=== PATIENT | male | born 1955 | race Caucasian/White ===

== ENCOUNTER 2020-01-12 08:39 | Inpatient (IN) | payer MEDICARE, SELFPAY ==
[2020-01-12] VITALS (22 sets, daily range): BP systolic 90–147; BP diastolic 69–107; PULSE 72–135; RESP 16–43; TEMP 36.8–37.8; O2SAT 90–100; BMI 20.5
--- NOTE | ~2020-01-12 | XR_ITS ---
EXAMINATION: XR chest 1V portable DATE: 01/12/2020 13:28 INDICATION: Increased shortness of breath. TECHNIQUE: A single frontal view of the chest was obtained on 2 radiographs. COMPARISON: Chest 2 views 01/12/2020, chest CT 01/12/2020 FINDINGS: The chest demonstrates clear lungs without pneumonia, pleural effusion, or pneumothorax. Th e heart size is normal. There is a healing fracture of ninth rib. IMPRESSION: 1. No acute cardiopulmonary disease. Reviewed, dictated and finalized at location A. OPERATOR
--- NOTE | ~2020-01-12 | CT_ITS ---
EXAMINATION: CTA chest PE protocol DATE: 01/12/2020 09:47 INDICATION: Dyspnea. TECHNIQUE: Computed tomography angiography (CTA) of the chest was performed with 100 mL Omnipaque-350 intravenous contrast timed to evaluate the pulmonary arteries. Coronal maximum intensity projection 3D-reconstructions were created by the technologist. Automated exposure control and iterative reconst ruction technique were employed. The dose-length product was 561.66 mGy-cm. COMPARISON: None. FINDINGS: There is a 5 mm nodule in right middle lobe. There are tree-in-bud opacities in lateral seg ment right middle lobe. There is an 7 mm nodule in right lower lobe abutting the major fissure. No pl eural effusion. The heart size is normal. There are coronary artery calcifications. No pericardial ef fusion. There is no pulmonary embolus. There is mild thoracic spondylosis. IMPRESSION: 1. No pulmonary embolus. Sensitivity is mildly decreased by motion artifact. 2. Mild pneumonia in right middle lobe. 3. 7 mm right lower lobe pulmonary nodule, probably benign. Noncontrast low-dose chest CT is recommen ded in 6 months. Reviewed, dictated and finalized at location A. ICAL APPEALS SPECIALIST IMPRESSION: 1. No pulmonary embolus. Sensitivity is mildly decreased by motion artifact. 2. Mild pneumonia in right middle lobe. 3. 7 mm right lower lobe pulmonary nodule, probably benign. Noncontrast low-dos e chest CT is recommended in 6 months.
--- NOTE | ~2020-01-12 | XR_ITS ---
EXAMINATION: XR chest 2V DATE: 01/12/2020 09:53 INDICATION: Dyspnea with bilateral wheezing TECHNIQUE: frontal and lateral views of the chest were obtained. COMPARISON: Chest CT dated 01/12/2020 FINDINGS: Increased lucency with architectural distortion most prominent in the upper lung zones and more promi nently at the right midlung zone suggestive of emphysema. No other airspace opacities, pulmonary rebecca a, pleural effusion or pneumothorax. Cardiomediastinal silhouette is normal. Healing posterolateral l eft ninth rib fracture. Bone island at the anterior left sixth rib. Mild scattered degenerative skel etal changes in the spine and at both shoulders. IMPRESSION: 1. Appearance suggestive but not diagnostic of emphysema. Reviewed, dictated and finalized at location A. HER OF FAMILY AND CONSUMER SCIENCE
--- NOTE | ~2020-01-12 | US_ITS ---
EXAMINATION: US venous doppler LE EXAM DATE: 01/12/2020 17:19 INDICATION: Elevated d-dimer. TECHNIQUE: Multiple grayscale, color flow and Doppler images of the lower extremity deep venous syste ms bilaterally were obtained and reviewed. There is no prior study for comparison. FINDINGS: Right side: The right common femoral, femoral and profunda veins demonstrate normal color flow, respi ratory variation, augmentation and compressibility. Compressibility, color flow confirmed within the right popliteal, posterior tibial, peroneal, and greater saphenous veins. Left side: The left common femoral, femoral and profunda veins demonstrate normal color flow, respira tory variation, augmentation and compressibility. Compressibility, color flow confirmed within the l eft popliteal, posterior tibial, peroneal, and greater saphenous veins. IMPRESSION: 1. No lower extremity deep venous thrombosis bilaterally. Reviewed, dictated and finalized at location A. SHED CLOTH CHECKER
--- NOTE | 2020-01-12 08:46 | ED.SOB ---
HPI - SOB/Dyspnea General Chief Complaint: Shortness of Breath/Dyspnea Stated Complaint: SOB Time Seen by Provider: 01/12/20 08:43 Source: patient Mode of arrival: EMS Limitations: no limitations History of Present Illness HPI Narrative: Pt is a 64 y/o male, with a H/O COPD, who presents to the ED, via EMS, from [facility], with c/o SOB that worsened last night. Pt states that he was intubated x2 while he was at [facility] and he was transferred to [place] for care d/t his son living near here. Pt is not on home O2 and he notes that last night he was hyperventilating and could not fall asleep. He reports feeling fatigued but denies CP. Dr. Cedrick Plata is the Physician at [facility] who is taking care of him. Pt is a former smoker. Per [place] records, pt is on a Prednisone taper currently and was recently Dx with Influenza B. Records show that he was admitted to [facility] on December 12 and he was transferred to [facility] on January 01. elicited complaint: shortness of breath Pertinent past history: COPD Onset (ago): day(s) (last night) Context: other (recently intubated) Timing: progressively worsening Severity: similar to previous episodes Known history of: COPD Associated symptoms: other (fatigue) Treatment prior to arrival: oxygen Related Data Home oxygen amount: none Home Medications Medication Instructions Recorded Confirmed acetaminophen 650 mg PO Q4H PRN 01/12/20 01/12/20 albuterol sulfate 2.5 mg INHALATION Q6H PRN 01/12/20 01/12/20 allopurinol 300 mg PO DAILY 01/12/20 01/12/20 niacin 100 mg PO TIDWM 01/12/20 01/12/20 olanzapine 5 mg PO DAILY 01/12/20 01/12/20 ondansetron 4 mg PO Q4H PRN 01/12/20 01/12/20 prednisone 10 mg PO DAILY 01/12/20 01/12/20 prednisone 20 mg PO DAILY 01/12/20 01/12/20 prednisone 30 mg PO DAILY 01/12/20 01/12/20 quetiapine 50 mg PO HS 01/12/20 01/12/20 ropinirole 1 mg PO TID 01/12/20 thiamine HCl (vitamin B1) [Vitamin 100 mg PO DAILY 01/12/20 01/12/20 B-1] umeclidinium-vilanterol [Anoro 1 inh INHALATION DAILY 01/12/20 01/12/20 Ellipta] Allergies Allergy/AdvReac Type Severity Reaction Status Date / Time No Known Allergies Allergy Verified 01/12/20 08:53 Review of Systems Review of Systems: All systems reviewed & are unremarkable except as noted in HPI and below Constitutional: Constitutional: Reports fatigue Cardiovascular: Cardiovascular: Denies chest pain Respiratory: Respiratory: Reports dyspnea PMFSH Past Medical History Medical History Anxiety COPD (chronic obstructive pulmonary disease) Gout HLD (hyperlipidemia) HTN (hypertension) Kidney stones Multiple sclerosis Required emergent intubation Surgical History Surgical History History of extraction of renal calculus Family History Family History Unknown Family history unknown Social History Social History Social History: The patient is . He is [facility]. He has 3 children the oldest son is a durable power collections attorney for healthcare. The patient is a full code. Patient would not admit to cocaine use but the daughter stated the past the patient used crack cocaine. He used to be on a daily basis about 7 years ago now just uses it occasionally. The patient used to drink heavily but not anymore. Smoking packs per day: 1 Smoking cigarettes per day: 20.0 Years smoked: 30 Smoking pack-years: 30.00 Smoking status: Former smoker Tobacco type: cigarettes Second hand tobacco smoke exposure: Yes Smoking end date: 11/29/14 Alcohol intake: former Substance use: current Substance use type: crack/cocaine Last use: November 2019 Living arrangements: [facility] Occupation/Education: retired Gender
--- NOTE | 2020-01-12 08:50 | ECG_ITS ---
Measurements Intervals [place] Rate: 151 P: 37 [place]: 111 QRS: 48 QRSD: 90 T: 31 QT: 265 QTc: 420 Interpretive Statements ATRIAL FLUTTER/TACHYCARDIA WITH RAPID VENTRICULAR RESPONSE NONSPECIFIC ST & T-WAVE ABNORMALITY- INF/LAT LEADS BASELINE ARTIFACT- I, II, III, AVR, AVL, AVF, V4-V6 ABNORMAL ECG Electronically Signed On 01-12-2020 9:26:32 HEDIS SPECIALIST by Portillo Pearson D.O.
[2020-01-12] MEDS: IPRATROPIUM BR 0.02% INH SOLN 0.5 MG/2.5 ML VIAL 1.5 MG INHALATION (08:57)
[2020-01-12] MEDS: ALBUTEROL SULFATE NEB 2.5 MG/0.5 ML INH 15 MG INHALATION ×2 (08:57→10:35)
[2020-01-12 09:01] LABS: Basophils Percent Auto 0.4 % (0.2-1.2); Eosinophils Absolute Auto 0.1 K/mm3 (0-0.3); Eosinophils Percent Auto 0.9 % (0-4.4); Hematocrit 36.4 % (42.0-52.0); Hemoglobin 11.6 g/dL (14.0-18.0); Immature Granulocyte Absolute 0.04 K/mm3 (0.00-0.031); Immature Granulocyte Percent A 0.4 % (0-0.5); Lymphocytes Absolute Auto 3.26 K/mm3 (0.9-3.2); Lymphocytes Percent Auto 29.2 % (18.3-44.2); Mean Corpuscular HGB Conc 31.9 g/dl (32-36); Mean Corpuscular Volume 97.3 fl (80-100); Mean Platelet Volume 9.8 fl (7.4-10.4); Monocytes Absolute Auto 0.8 K/mm3 (0.1-0.6); Monocytes Percent Auto 6.7 % (2.6-8.5); Neutrophils Percent Auto 62.4 % (45.5-73.1); Platelet Count Result 142 k/mm3 (150-375); Red Blood Count 3.74 M/mm3 (4.6-6.20); Red Cell Distribution Width 12.1 % (11.5-14.5); White Blood Count 11.2 K/mm3 (4.5-10.0)
[2020-01-12 09:06] LABS: Alveolar/Arterial O2 Gradient 39.1 mmHg; Base Excess ABG 3.3 mEq/l (+/-2.0); Carboxyhemoglobin 0.2 % THb (0-2.0); Device ROOM AIR; Fractional Inspired Oxygen 21 %; HCO3 ABG 28.4 mEq/l (22.0-26.0); Methemoglobin ABG 0.2 %THb (0-1.5); Modified Allen's Test Pass; Oxygen Content ABG 15.6 %vol (16.0-22.0); Oxygen Saturation ABG 89.8 % (95.0-100.0); Oxyhemoglobin 88.9 % THb (90.0-100.0); PCO2 ABG 45.1 mmHg (35.0-45.0); PO2 ABG 56.6 mmHg (80.0-100.0); Reduced Hemoglobin 10.7 %THb (0-5.0); Site Drawn RIGHT RADIAL; Total Hemoglobin 12.5 g/dL (12.0-18.0); pH ABG 7.417 (7.350-7.450)
[2020-01-12 09:14] LABS: Alanine Aminotransferase 27 U/L (4-50); Albumin Level 3.5 g/dL (3.5-5.1); Alkaline Phosphatase 99 U/L (38-126); Aspartate Amino Transferase 27 U/L (17-59); Bilirubin,Total 0.4 mg/dL (0.2-1.3); Blood Urea Nitrogen 17 mg/dL (9-20); Calcium 8.7 mg/dL (8.4-10.2); Carbon Dioxide 32 mmol/L (22-30); Chloride 102 mmol/L (98-107); Estimated Glomerular Filt Rate > 60; Glucose 129 mg/dL (75-110); Magnesium 1.8 mg/dL (1.6-2.3); Potassium 3.4 mmol/L (3.4-5.0); Sodium 140 mmol/L (137-145)
[2020-01-12 09:25] LABS: NT Pro B Type Natriuretic Pept 791 PG/ML (5-100); Troponin I 0.018 ng/mL (0.000-0.034)
[2020-01-12 09:26] LABS: INR 0.9; Prothrombin Time 11.8 Seconds (11.1-14.7)
[2020-01-12 09:27] LABS: Partial Thromboplastin Time 25.8 SECONDS (22.3-36.8)
[2020-01-12 09:30] LABS: D Dimer 1.77 ug/mL (<0.48)
[2020-01-12 10:20] LABS: Thyroid Stimulating Hormone Reflex 0.557 uIU/mL (0.465-4.68)
[2020-01-12 12:01] LABS: Add Urine Microscopic? YES; Appearance Urine Clear (Clear); Bacteria Urine Trace /hpf; Bilirubin Urine Negative (Negative); Blood Urine 1+ (Negative); Color Urine Yellow (Yellow); Glucose Urine UA Negative (Negative); Ketones Urine Negative (Negative); Leukocyte Esterase Ur Negative LEU/UL (Negative); Mucus Urine Rare /lpf; Nitrate Urine Negative (Negative); Protein Urine 1+ mg/dL (Negative); Specific Grav Ur 1.023 (1.001-1.035); Squamous Epithelial Cell Urine Rare /hpf (Few); Urobilinogen Urine Negative mg/dL (<2.0)
--- NOTE | 2020-01-12 12:29 | PC.NURSE ---
This patient, Jordy Doyle, was admitted to IMU Room 232-01. Patient/family oriented to hospital policies and general routines including ID bracelet, bed and alarms, visiting hours, pain management, procedures, bathroom and other care routines, personal items, smoking policy, room service/diet, and visiting hours. Valuables list has been completed. Information on how to activate the Rapid Response Team has been discussed. Patient/Family are encouraged to report perceived risks to care and to ask questions if they do not understand what they are told or what they should do.
[2020-01-12 12:34] LABS: Troponin I < 0.012 ng/mL (0.000-0.034)
[2020-01-12] MEDS: ALBUTEROL SULFATE NEB 2.5 MG/0.5 ML INH 5 MG INHALATION ×2 (13:40→22:20)
[2020-01-12] MEDS: IPRATROPIUM BR 0.02% INH SOLN 0.5 MG/2.5 ML VIAL INHALATION ×2 (13:40→22:32)
[2020-01-12] MEDS: methylPREDNISolone SOD SUCC 125 MG VIAL IV PUSH (13:43)
[2020-01-12] MEDS: FUROSEMIDE INJ 40 MG/4 ML VIAL 20 MG IV PUSH (14:16)
--- NOTE | 2020-01-12 15:18 | PM.IMHP ---
H&P: HPI History of Present Illness Chief complaint: Acute respiratory failure/COPD exacerbation/pneumo Narrative: Jordy Doyle is a 64 year old male who was at [facility]. The patient has a history of COPD. The patient was admitted to [facility] I believe was last month. The patient had been intubated 2 times this year so far. He also has MS. He was treated for influenza while he is a [facility]. Awaiting records from [facility] or these for. The daughter tells me that he was intubated overnight the 1st time and then reintubated and on the ventilator 4-5 days after that. Patient had been treated with Tamiflu for the influenza B. the patient had been transferred to [place] for care after his discharge from [facility]. The patient had been on a prednisone taper after the influenza B. here today the patient was found to be tachypneic tachycardic. His EKG was read as atrial fibrillation and the patient was placed on Cardizem. Cardiology has been consulted. The patient stated he has never been in her irregular rhythm in the past. I was called into the room due to patient's respiratory rate of 40. I called Dr. Ricketts the leg breaker into the room to see the patient needed to be intubated and taken to the ICU. We repeated his chest x-ray cardiopulmonary disease. However his lungs are greatly decreased. I did give him a higher dose of Solu-Medrol and then started on the lower dose IV. The patient was also given IV Lasix. The patient stated that he was feeling much better. Patient had been on a Zithromax and, vancomycin, and Rocephin. Form Maker suggested switching from Rocephin to cefepime. Blood gases from ER pH 7.417, CO2 45.1, PO2 56.6, and bicarb 28.4. Date of service is 01/12/2020 the patient is on BiPAP 15/5 with a rate of 4. Review of Systems Review of Systems: Narrative: The patient is quite anxious. He is on a BiPAP machine. He verbalized understanding that if he does not turn around on the BiPAP then we will have no other choice but to intubated. And the patient is okay with this. No chest pain no palpitations no fever no chills. The patient does have MS and states that he feels very fatigued and weak. All systems reviewed & are unremarkable except as noted in HPI and below Constitutional: Constitutional: Reports as per HPI and Reports no additional constitutional complaints Eyes: Eyes: Reports as per HPI and Reports no additional eye complaints ENT: Reports system reviewed and no additional complaints, except as documented and Reports Normal hearing present Cardiovascular: Cardiovascular: Reports no additional cardiovascular complaints Respiratory: Respiratory: Reports no additional respiratory complaints and Reports no additional respiratory complaints Gastrointestinal: Gastrointestinal: Reports as per HPI and Reports no additional gastrointestinal complaints Musculoskeletal: Musculoskeletal: Reports no additional musculoskeletal complaints Integumentary/Breasts: Skin/Breast: Reports system reviewed and no additional complaints, except as docu and Reports as per HPI Neurologic: Reports system reviewed and no additional complaints, except as documented, Reports as per HPI and Reports Normal hearing present Psychiatric: Psychiatric: Reports no additional psychiatric complaints and Reports as per HPI Endocrine: Endocrine: Reports no additional endocrine complaints Hematologic/Lymphatic: Hematologic/Lymphatic: Reports no additional hematologic/lymphatic complaints Allergic/Immunologic: Allergic/Immunologic: Reports no additional allergic/immunologic complaints [facility] Past Medical History Medical History (Updated 01/12/20 @ 16:00 by Teressa Cantu NP) Anxiety COPD (chronic obstructive pulmonary disease) Gout HLD (hyperlipidemia) HTN (hypertension) Kidney stones Multiple sclerosis Required emergent intubation Surgical History Surgical History (Updated 01/12/20 @ 15:57
[2020-01-12 15:32] LABS: Troponin I 0.015 ng/mL (0.000-0.034)
--- NOTE | 2020-01-12 16:29 | PM.CNCAR ---
Assessment and Plan Assessment and plan (1) New onset a-fib: Code(s): I48.91 - Unspecified atrial fibrillation Status: Acute Assessment and Plan: His EKG showed multifocal atrial tachycardia, with rate of 140, improved with Cardizem, currently on IV Cardizem at 5 mg an hour, will switch to oral Cardizem and continue to monitor closely. Will get echocardiogram to evaluate current left ventricular systolic function look for any other structural heart disease. For the time being will be on anticoagulation to see other findings in his echo to consider the need for oral anticoagulation (2) Respiratory failure: Code(s): J96.90 - Respiratory failure, unspecified, unspecified whether with hypoxia or hypercapnia Status: Acute Assessment and Plan: Two slightly better on current study with BiPAP, treatment per primary care service (3) Multiple sclerosis: Code(s): G35 - Multiple sclerosis Status: Chronic (4) HTN (hypertension): Code(s): I10 - Essential (primary) hypertension Status: Chronic (5) COPD (chronic obstructive pulmonary disease): Code(s): J44.9 - Chronic obstructive pulmonary disease, unspecified Status: Chronic Additional Plan Thank you for allowing me to participate in this patient's care, I will be following up with you. Please do not hesitate to call me for any other inquiry History of Present Illness History of Present Illness Consult date/time: 01/12/20 16:29 Chief complaint is shortness of breath. 64 years old gentleman with history of COPD, history of substance abuse, came to hospital because of worsening shortness breath. Apparently had influenza a last month and had pneumonia and was intubated Hospital, but does not know of history of arrhythmia, this time he came in he was noted to have respiratory distress, and had significant wheezing and noted to have significant tachycardia about further review of his EKG it looks showing MAT multifocal atrial tachycardia. He was started on Cardizem drip, and currently he is back in sinus rhythm, he feels better as far as breathing, he stated that he has occasional palpitation but no syncope no dizziness. No history of chest pain no history of known coronary disease. Reason For Visit: Acute respiratory failure/COPD exacerbation/pneumo Review of Systems Review of Systems: ROS unobtainable: unobtainable due to mental condition PMFSH Past Medical History Medical History Anxiety COPD (chronic obstructive pulmonary disease) Gout HLD (hyperlipidemia) HTN (hypertension) Kidney stones Multiple sclerosis Required emergent intubation Surgical History Surgical History History of extraction of renal calculus Family History Family History Unknown Family history unknown Social History Social History Social History: The patient is . He is currently at [facility]. He has 3 children the oldest son is a durable power insurance attorney for healthcare. The patient is a full code. Patient would not admit to cocaine use but the daughter stated the past the patient used crack cocaine. He used to be on a daily basis about 7 years ago now just uses it occasionally. The patient used to drink heavily but not anymore. Smoking packs per day: 1 Smoking cigarettes per day: 20.0 Years smoked: 30 Smoking pack-years: 30.00 Smoking status: Former smoker Tobacco type: cigarettes Second hand tobacco smoke exposure: Yes Smoking end date: 11/29/14 Alcohol intake: former Substance use: current Substance use type: crack/cocaine Last use: November 2019 Living arrangements: half-way Occupation/Education: retired Gender identity (if verbalized by the patient): Male Spiritual care concerns:
[2020-01-12] MEDS: ENOXAPARIN 80 MG/0.8 ML SYRINGE 68 MG SUB-Q (18:50)
[2020-01-12] MEDS: methylPREDNISolone SOD SUCC 125 MG VIAL 80 MG IV PUSH (21:09)
[2020-01-12] MEDS: DILTIAZEM HCL 30 MG TABLET PO (21:10)
[2020-01-12] MEDS: LORAZEPAM INJ 2 MG/ML VIAL 0.5 MG IV PUSH (22:13)
[2020-01-13] VITALS (27 sets, daily range): BP systolic 91–155; BP diastolic 44–92; PULSE 57–118; RESP 18–36; TEMP 35.6–37.1; O2SAT 91–100
--- NOTE | 2020-01-13 | ECHO_ITS ---
Patient Info Name: Jordy Doyle Age: 64 years : 1955 Gender: Male Ht: 72 in Wt: 151 lbs BSA: 1.86 m2 HR: 74 bpm BP: 91 / 44 mmHg Technical Quality: Good Exam Date: 01/13/2020 8:29 AM Exam Location: [facility] Patient Status: Inpatient Admit Date: 01/12/2020 Staff Ordering Physician: Gutierrez Devine MD Coverstitch Elastic Attacher: True Bridges, LIA, RT Attending Provider: Amara Prieto MD Exam Type: CA echo doppler color flow Study Info Complete two-dimensional, color flow and Doppler transthoracic echocardiogram is performed. Summary 1. Left ventricular systolic function is normal, estimated at 55-60%. 2. Left atrial chamber dimension is normal. 3. Right atrial chamber dimension is normal. 4. lipomatous hypertrophy of the atrial septum (normal variant). 5. There is no aortic valve stenosis. 6. There is no mitral valve regurgitation. 7. Unable to assess RVSP due to poor tricuspid regurgitation signal. 8. IVC is dilated and does not collapse with inspiration. Left Ventricle Left ventricular chamber dimension is normal. Left ventricular systolic function is normal, estimated at 55-60%. There is no increased left ventricular wall thickness. Left ventricular septal wall motion is normal. The left ventricular diastolic function is grade I diastolic dysfunction. Right Ventricle Right ventricular chamber dimension is normal. Right ventricular systolic function is normal. Left Atria Left atrial chamber dimension is normal. Right Atria Right atrial chamber dimension is normal. Atrial Septum lipomatous hypertrophy of the atrial septum (normal variant). Aortic Valve The aortic valve is not well visualized but appears trileaflet. There is no aortic valve sclerosis. There is no aortic valve stenosis. There is no aortic valve regurgitation. Pulmonic Valve The pulmonic valve is normal. There is no pulmonic valve stenosis. There is no pulmonic regurgitation. Mitral Valve The mitral valve has normal leaflets. There is no mitral valve stenosis. There is no mitral valve regurgitation. Tricuspid Valve The tricuspid valve leaflets are normal. There is no significant tricuspid valve stenosis. There is no tricuspid valve regurgitation. Unable to assess RVSP due to poor tricuspid regurgitation signal. Pericardium/Pleural The pericardium appears normal. There is no pericardial effusion. Inferior Vena Cava IVC is dilated and does not collapse with inspiration. Aorta The aortic root size at the sinus of Valsalva is normal. The prox ascending aorta size is normal. Left Ventricular Outflow Tract Name Value Normal LVOT 2D LVOT Diameter 2.0 cm LVOT Doppler LVOT Peak Gradient 4 mmHg LVOT Mean Gradient 2 mmHg LVOT VTI 19 cm LVOT VTI/AV VTI Ratio 0.7 LVOT Stroke Volume 59 ml LVOT CO 4.1 l/min LVOT CI 2.2 l/min/m2 Pulmonic Valve
[2020-01-13] MEDS: DILTIAZEM HCL 30 MG TABLET PO ×2 (00:35→05:42)
[2020-01-13] MEDS: ALBUTEROL SULFATE NEB 2.5 MG/0.5 ML INH 5 MG INHALATION ×4 (03:26→21:20)
[2020-01-13] MEDS: IPRATROPIUM BR 0.02% INH SOLN 0.5 MG/2.5 ML VIAL INHALATION ×4 (03:27→21:20)
[2020-01-13] MEDS: LORAZEPAM INJ 2 MG/ML VIAL 0.5 MG IV PUSH ×2 (04:13→17:30)
[2020-01-13 05:17] LABS: Basophils Percent Auto 0.2 % (0.2-1.2); Hematocrit 30.7 % (42.0-52.0); Hemoglobin 9.9 g/dL (14.0-18.0); Immature Granulocyte Absolute 0.05 K/mm3 (0.00-0.031); Immature Granulocyte Percent A 0.8 % (0-0.5); Lymphocytes Absolute Auto 0.53 K/mm3 (0.9-3.2); Lymphocytes Percent Auto 8.3 % (18.3-44.2); Mean Corpuscular HGB Conc 32.2 g/dl (32-36); Mean Corpuscular Volume 96.2 fl (80-100); Mean Platelet Volume 10.3 fl (7.4-10.4); Monocytes Absolute Auto 0.1 K/mm3 (0.1-0.6); Monocytes Percent Auto 0.9 % (2.6-8.5); Neutrophils Absolute Auto 5.8 K/mm3 (1.3-6.7); Neutrophils Percent Auto 89.8 % (45.5-73.1); Platelet Count Result 132 k/mm3 (150-375); Red Blood Count 3.19 M/mm3 (4.6-6.20); Red Cell Distribution Width 12.3 % (11.5-14.5); White Blood Count 6.4 K/mm3 (4.5-10.0)
[2020-01-13] MEDS: methylPREDNISolone SOD SUCC 125 MG VIAL 80 MG IV PUSH ×3 (05:41→21:01)
[2020-01-13] MEDS: ENOXAPARIN 80 MG/0.8 ML SYRINGE 68 MG SUB-Q (05:41)
[2020-01-13 06:06] LABS: Albumin Level 3.1 g/dL (3.5-5.1); Alkaline Phosphatase 92 U/L (38-126); Aspartate Amino Transferase 22 U/L (17-59); Bilirubin,Total 0.3 mg/dL (0.2-1.3); Blood Urea Nitrogen 27 mg/dL (9-20); Calcium 8.4 mg/dL (8.4-10.2); Carbon Dioxide 25 mmol/L (22-30); Chloride 95 mmol/L (98-107); Estimated CRCL calculation 47 ml/min; Estimated Glomerular Filt Rate 47; Glucose 131 mg/dL (75-110); Potassium 4.6 mmol/L (3.4-5.0); Sodium 136 mmol/L (137-145)
[2020-01-13 06:17] LABS: Alanine Aminotransferase 31 U/L (4-50)
[2020-01-13 06:53] LABS: Magnesium 1.8 mg/dL (1.6-2.3)
[2020-01-13 07:12] LABS: Thyroid Stimulating Hormone Reflex 0.203 uIU/mL (0.465-4.68)
[2020-01-13 08:40] LABS: Free T4 Free Thyroxine Reflex 1.31 ng/dL (0.78-2.19)
--- NOTE | 2020-01-13 09:53 | PM.PNCARD ---
Progress Note: A&P Assessment and Plan (1) New onset a-fib: Code(s): I48.91 - Unspecified atrial fibrillation Status: Acute Assessment and Plan: multifocal atrial tachycardia in the setting of resp distress 2D echo with normal EF and no significant valvular disease Heart rate better with diltiazem. Will switch to long acting (2) Respiratory failure: Code(s): J96.90 - Respiratory failure, unspecified, unspecified whether with hypoxia or hypercapnia Status: Acute Assessment and Plan: Two slightly better on current study with BiPAP, treatment per primary care service (3) Multiple sclerosis: Code(s): G35 - Multiple sclerosis Status: Chronic (4) HTN (hypertension): Code(s): I10 - Essential (primary) hypertension Status: Chronic Assessment and Plan: Well controlled (5) COPD (chronic obstructive pulmonary disease): Code(s): J44.9 - Chronic obstructive pulmonary disease, unspecified Status: Chronic Additional Plan Thank you for allowing me to participate in this patient's care, I will be following up with you. Please do not hesitate to call me for any other inquiry Subjective Date/time seen: 01/13/20 09:53 On BiPAP at time of my evaluation. Feels better overall. Tele reviewed, now in sinus rhythm with heart rate ~ 80. Review of Systems Review of Systems: Narrative: Difficult to obtain, pt on BiPAP Exam Narrative: Exam Narrative: Awake alert oriented x3, currently on a BiPAP machine, seems to be having no active distress at this time Neck is supple no obvious JVD, no carotid bruit Chest: Decreased breathing sound on the bases noted with bilateral wheezing noted Cardiovascular: Regular rate and rhythm, 2/6 systolic murmur noted left sternal border Abdomen: Soft nontender bowel sounds positive Extremities: No edema has good pulses distally bilaterally Objective Data Vital Signs Vital Signs: Vital Signs - 24 hr 01/12/20 10:37 01/12/20 11:08 01/12/20 12:20 Temperature Pulse Rate 131 H 129 H 118 H Respiratory Rate 31 H 33 H 16 Blood Pressure 102/69 Pulse Oximetry 99 100 01/12/20 12:30 01/12/20 12:52 01/12/20 13:42 Temperature 36.8 C Pulse Rate 132 H 135 H 111 H Respiratory Rate 38 H 43 H 34 H Blood Pressure 104/79 Pulse Oximetry 100 100 01/12/20 13:59 01/12/20 15:36 01/12/20 16:00 Temperature Pulse Rate 103 H 94 95 Respiratory Rate 35 H 35 H Blood Pressure Pulse Oximetry 100 01/12/20 17:09 01/12/20 18:00 01/12/20 20:00 Temperature Pulse Rate 94 85 79 Respiratory Rate 40 H 27 H Blood Pressure Pulse Oximetry 100 99 01/12/20 20:50 01/12/20 22:00 01/12/20 22:33 Temperature 37.8 C H Pulse Rate 72 79 99 Respiratory Rate 34 H 27 H Blood Pressure 90/72 L Pulse Oximetry 99 01/12/20 22:34 01/12/20 22:43 01/12/20 23:10 Temperature Pulse Rate 94 101 H Respiratory Rate 27 H 26 H Blood Pressure Pulse Oximetry 99 98 01/13/20 00:00 01/13/20 01:36 01/13/20 02:00 Temperature 36.6 C Pulse Rate 68 72 68 Respiratory Rate 31 H 31 H Blood Pressure 111/92 H Pulse Oximetry 98 98 01/13/20 02:20 01/13/20 03:27 01/13/20 04:00 Temperature Pulse Rate 62 66 72 Respiratory Rate 19 19 36 H Blood Pressure Pulse Oximetry 96 100 01/13/20 04:01 01/13/20 06:00 01/13/20 09:20 Temperature 37.1 C 36.8 C Pulse Rate 72 74 91 Respiratory Rate 36 H 30 H Blood Pressure 91/44 L 119/75 Pulse Oximetry 100 91 01/13/20 09:45 01/13/20 09:48 Temperature Pulse Rate 88 Respiratory Rate 20 Blood Pressure Pulse Oximetry 95 Intake/Output Intake/Output: Intake & Output 01/10/20 01/11/20 01/12/20 01/13/20 23:59 23:59 23:59 23:59 Intake Total 450 Balance 450 Meds/Results Medications: Active Medications Generic Name Dose Route Start Last Admin Trade Name Freq PRN Reason Stop Dose Admin Albuterol 5 mg 01/12/20 14:00
--- NOTE | 2020-01-13 10:40 | PM.IMPN ---
Progress Note: A&P Assessment and Plan (1) Respiratory failure: Qualifiers: Chronicity: acute Respiratory failure complication: hypoxia Qualified Code(s): J96.01 - Acute respiratory failure with hypoxia Code(s): J96.90 - Respiratory failure, unspecified, unspecified whether with hypoxia or hypercapnia Status: Acute Assessment and Plan: Improving Wean oxygen as tolerated Continue PRN bipap Treatment as outlined below (2) COPD (chronic obstructive pulmonary disease): Qualifiers: COPD type: COPD with acute lower respiratory infection Qualified Code(s): J44.0 - Chronic obstructive pulmonary disease with (acute) lower respiratory infection Code(s): J44.9 - Chronic obstructive pulmonary disease, unspecified Status: Chronic Assessment and Plan: RML PNA by CTA chest Continue cefepime day 2 Stopped azithromycin and vancomycin 01/12 and utilize doxycycline due to QT prolongation potential PT/OT (3) Multifocal atrial tachycardia: Code(s): I47.1 - Supraventricular tachycardia Status: Acute Assessment and Plan: 01/12 switch to PO diltiazem CD Monitor (4) HTN (hypertension): Qualifiers: Hypertension type: essential hypertension Qualified Code(s): I10 - Essential (primary) hypertension Code(s): I10 - Essential (primary) hypertension Status: Chronic Assessment and Plan: Monitor (5) Multiple sclerosis: Code(s): G35 - Multiple sclerosis Status: Chronic Assessment and Plan: On steroid taper as outpatient Follows with outside neurologist (6) Anxiety: Code(s): F41.9 - Anxiety disorder, unspecified Status: Chronic Assessment and Plan: Continue home medications Subjective Date/time seen: 01/13/20 10:40 Interval history: Breathing a little better. DYE with any exertion. Pain in lower ribs with breathing or coughing. Generalized weakness. At baseline walks with walker for short distances. Denied GI/ issues. Denied abnormal bleeding. Review of Systems Review of Systems: All systems reviewed & are unremarkable except as noted in HPI and below Exam Narrative: Exam Narrative: HEENT: EOMI, PERRL, pharyngeal mucosa pink and intact NECK: No JVD, adenopathy, or thyromegaly CHEST: Tachypneic. Diffuse insp & exp rhonchi with exp wheezes HEART: NL S1/S2, regular, no murmur ABDOMEN: BS+, soft, nontender, no mass, no bruits EXTREMITIES: No cyanosis, edema, or clubbing NEUROLOGIC: CN intact and symmetric to inspection. MUSCULOSKELETAL: Tone and strength symmetric. PSYCH: Alert. Oriented to person, place, and time. Objective Data Vital Signs Vital Signs: Vital Signs - 24 hr 01/12/20 11:08 01/12/20 12:20 01/12/20 12:30 Temperature 98.3 F Pulse Rate 129 H 118 H 132 H Respiratory Rate 33 H 16 38 H Blood Pressure 102/69 104/79 Pulse Oximetry 99 100 100 01/12/20 12:52 01/12/20 13:42 01/12/20 13:59 Temperature Pulse Rate 135 H 111 H 103 H Respiratory Rate 43 H 34 H 35 H Blood Pressure Pulse Oximetry 100 01/12/20 15:36 01/12/20 16:00 01/12/20 17:09 Temperature Pulse Rate 94 95 94 Respiratory Rate 35 H 40 H Blood Pressure Pulse Oximetry 100 100 01/12/20 18:00 01/12/20 20:00 01/12/20 20:50 Temperature 100.0 F H Pulse Rate 85 79 72 Respiratory Rate 27 H 34 H Blood Pressure 90/72 L Pulse Oximetry 99 99 01/12/20 22:00 01/12/20 22:33 01/12/20 22:34 Temperature Pulse Rate 79 99 94 Respiratory Rate 27 H 27 H Blood Pressure Pulse Oximetry 99 01/12/20 22:43 01/12/20 23:10 01/13/20 00:00 Temperature Pulse Rate 101 H 68 Respiratory Rate 26 H 31 H Blood Pressure Pulse Oximetry 98 98 01/13/20 01:36 01/13/20 02:00 01/13/20 02:20 Temperature 97.8 F Pulse Rate 72 68 62 Respiratory Rate 31 H 19 Blood Pressure 111/92 H Pulse Oximetry 98 96 01/13/20 03:27 01/13/20 04:00 01/13/20 04:01 Te
[2020-01-13] MEDS: THIAMINE HCL 100 MG TABLET PO (12:09)
[2020-01-13] MEDS: allopurinoL 300 MG TABLET PO (12:09)
[2020-01-13] MEDS: DOXYCYCLINE HYCLATE 100 MG TABLET PO ×2 (12:09→20:58)
[2020-01-13] MEDS: NIACIN 100 MG TABLET PO ×2 (12:10→17:30)
[2020-01-13] MEDS: ACETAMINOPHEN 325 MG TABLET 650 MG PO ×2 (17:30→20:58)
[2020-01-13] MEDS: QUEtiapine FUMARATE 25 MG TABLET 50 MG PO (20:58)
--- NOTE | 2020-01-13 23:20 | PM.EVENT ---
Event Note Event Note Event Note: I received a call from this patient's nurse at approximately 23:15. Patient is irritable with staff and is refusing to wear his equipment monitor phototypesetting and BiPAP. Nurse concerned that he may be hallucinating. I come to evaluate the patient, and he is sleeping. When I wake him up, he is irritable ?I just want to sleep, leave me alone.? He is alert and oriented, but apparently was talking earlier about having cats in the basement. No tremors, anxiety, diaphoresis, or any signs to suggest alcohol withdrawal, which the nurse was worried about. Patient states he has not had anything to drink in 50 days. He is continuing to refuse telemetry. We discussed the risks of not being monitored, including the development of distal arrhythmia which would not be seen by staff, with the possibility of and the patient states he is okay with that ?and I just want some sleep, do not wake me up again.?
--- NOTE | 2020-01-13 23:28 | PC.NURSE ---
PT. CONSTANTLY PULLING OFF HEART MONITER. INFORMED PT. THAT MD HAS ORDERED THIS TO OBSERVE HIS HR. PT. STARTED TO CUSS AND BECAME VIOLENT STATING HE JUST WANTED TO SLEEP. I NOTIFIED YADIRA DAVILA REGARDING PT. REFUSING TO WEAR TELEMETRY AND BIPAP. MAXIMINO AT BEDSIDE TO ASESS PT. AND EXPLAINED THE NEED FOR TELEMETRY AND BIPAP. PT. STILL REFUSING TO WEAR THEM BOTH.
[2020-01-14] VITALS (14 sets, daily range): BP systolic 136–174; BP diastolic 58–104; PULSE 75–134; RESP 18–44; TEMP 36.4–37.4; O2SAT 94–99
[2020-01-14] MEDS: ALBUTEROL SULFATE NEB 2.5 MG/0.5 ML INH 5 MG INHALATION ×4 (02:55→21:13)
[2020-01-14] MEDS: IPRATROPIUM BR 0.02% INH SOLN 0.5 MG/2.5 ML VIAL INHALATION ×4 (02:55→21:13)
[2020-01-14] MEDS: methylPREDNISolone SOD SUCC 125 MG VIAL 80 MG IV PUSH (04:55)
[2020-01-14] MEDS: LORAZEPAM INJ 2 MG/ML VIAL 0.5 MG IV PUSH ×2 (04:55→20:54)
[2020-01-14 05:31] LABS: Hematocrit 30.9 % (42.0-52.0); Hemoglobin 9.9 g/dL (14.0-18.0); Immature Reticulocyte Fraction 7.7 % (3.0-15.9); Mean Corpuscular Hemoglobin 30.8 pg (26-34); Mean Corpuscular Volume 96.3 fl (80-100); Mean Platelet Volume 10.4 fl (7.4-10.4); Platelet Count Result 157 k/mm3 (150-375); Red Blood Count 3.21 M/mm3 (4.6-6.20); Reticulocyte Hemoglobin Conten 32.1 pg (28.2-35.7); Reticulocyte Percent 1.84 % (0.7-4.3); Reticulocytes Absolute 0.06 B/L (32.2-175.7); White Blood Count 7.2 K/mm3 (4.5-10.0)
[2020-01-14 05:41] LABS: Blood Urea Nitrogen 39 mg/dL (9-20); Calcium 8.4 mg/dL (8.4-10.2); Carbon Dioxide 28 mmol/L (22-30); Chloride 102 mmol/L (98-107); Estimated CRCL calculation 50 ml/min; Estimated Glomerular Filt Rate 51; Glucose 148 mg/dL (75-110); Potassium 3.8 mmol/L (3.4-5.0); Sodium 139 mmol/L (137-145)
[2020-01-14 06:21] LABS: Iron 105 ug/dL (49-181)
[2020-01-14 06:30] LABS: Percent Iron Saturation 60 % (20-50)
[2020-01-14 06:54] LABS: Thyroid Stimulating Hormone Reflex 0.041 uIU/mL (0.465-4.68)
[2020-01-14 07:22] LABS: Folic Acid 4.3 ng/mL (2.76->20)
--- NOTE | 2020-01-14 08:19 | PM.PNCARD ---
Progress Note: A&P Assessment and Plan (1) Multifocal atrial tachycardia: Code(s): I47.1 - Supraventricular tachycardia Status: Acute Assessment and Plan: multifocal atrial tachycardia in the setting of resp distress 2D echo with normal EF and no significant valvular disease Heart rate better with diltiazem. No indication for anticoagulation. (2) AMS (altered mental status): Code(s): R41.82 - Altered mental status, unspecified Status: Acute Assessment and Plan: Hospital delirium vs steroids induced ? management per primary team. (3) Respiratory failure: Qualifiers: Chronicity: acute Respiratory failure complication: hypoxia Qualified Code(s): J96.01 - Acute respiratory failure with hypoxia Code(s): J96.90 - Respiratory failure, unspecified, unspecified whether with hypoxia or hypercapnia Status: Acute Assessment and Plan: Refusing Bipap. (4) Multiple sclerosis: Code(s): G35 - Multiple sclerosis Status: Chronic (5) HTN (hypertension): Qualifiers: Hypertension type: essential hypertension Qualified Code(s): I10 - Essential (primary) hypertension Code(s): I10 - Essential (primary) hypertension Status: Chronic Assessment and Plan: Well controlled (6) COPD (chronic obstructive pulmonary disease): Qualifiers: COPD type: COPD with acute lower respiratory infection Qualified Code(s): J44.0 - Chronic obstructive pulmonary disease with (acute) lower respiratory infection Code(s): J44.9 - Chronic obstructive pulmonary disease, unspecified Status: Chronic Additional Plan Thank you for allowing me to participate in this patient's care, I will be following up with you. Please do not hesitate to call me for any other inquiry Subjective Date/time seen: 01/14/20 08:19 Confused overnight and this morning. Refusing Bipap and tele monitor. Review of Systems Review of Systems: Narrative: Unable to obtain due to AMS Exam Narrative: Exam Narrative: Awake alert oriented x2, seems to be having no active distress at this time Neck is supple no obvious JVD, no carotid bruit Chest: Decreased breathing sound on the bases noted with bilateral wheezing noted Cardiovascular: Regular rate and rhythm, 2/6 systolic murmur noted left sternal border Abdomen: Soft nontender bowel sounds positive Extremities: No edema has good pulses distally bilaterally Objective Data Vital Signs Vital Signs: Vital Signs - 24 hr 01/13/20 09:20 01/13/20 09:45 01/13/20 09:48 Temperature 36.8 C Pulse Rate 91 88 Respiratory Rate 30 H 20 Blood Pressure 119/75 Pulse Oximetry 91 95 01/13/20 09:57 01/13/20 10:00 01/13/20 12:00 Temperature 36.9 C Pulse Rate 89 97 92 Respiratory Rate 18 24 H Blood Pressure 155/77 H Pulse Oximetry 97 01/13/20 14:00 01/13/20 15:41 01/13/20 15:51 Temperature Pulse Rate 101 H 103 H 99 Respiratory Rate 18 18 Blood Pressure Pulse Oximetry 01/13/20 16:00 01/13/20 18:00 01/13/20 18:44 Temperature 35.6 C L Pulse Rate 114 H 118 H 115 H Respiratory Rate 22 H Blood Pressure 155/60 H Pulse Oximetry 97 01/13/20 20:00 01/13/20 20:09 01/13/20 21:25 Temperature 36.4 C Pulse Rate 111 H 108 H 97 Respiratory Rate 24 H 18 Blood Pressure 142/73 H Pulse Oximetry 95 01/13/20 21:32 01/13/20 21:33 01/13/20 23:34 Temperature 36.5 C Pulse Rate 97 97 Respiratory Rate 18 22 H Blood Pressure 123/57 L Pulse Oximetry 95 94 01/14/20 02:55 01/14/20 03:07 01/14/20 03:30 Temperature 36.4 C L Pulse Rate 98 96 108 H Respiratory Rate 18 18 22 H Blood Pressure 163/87 H Pulse Oximetry 96 01/14/20 07:08 Temperature 37.1 C Pulse Rate 97 Respiratory Rate 22 H Blood Pressure 163/79 H Pulse Oximetry 94 Intake/Output Intake/Output: Intake & Output 01/11/20 01/12/20 01/13/20 01/14/20 23:59 23:59 23:59 23:59 Inta
--- NOTE | 2020-01-14 09:16 | P.PNIM_ITS ---
Progress Note: A&P Assessment and Plan (1) Respiratory failure: Qualifiers: Chronicity: acute Respiratory failure complication: hypoxia Qualified Code(s): J96.01 - Acute respiratory failure with hypoxia Code(s): J96.90 - Respiratory failure, unspecified, unspecified whether with hypoxia or hypercapnia Status: Acute Assessment and Plan: * Improving * Wean oxygen as tolerated * Continue PRN bipap * Treatment as outlined below (2) COPD (chronic obstructive pulmonary disease): Qualifiers: COPD type: COPD with acute lower respiratory infection Qualified Code(s ): J44.0 - Chronic obstructive pulmonary disease with (acute) lower respiratory infection Code(s): J44.9 - Chronic obstructive pulmonary disease, unspecified Status: Chronic Assessment and Plan: * RML PNA by CTA chest * Continue cefepime day 2 * Stopped azithromycin and vancomycin 01/12 and utilize doxycycline due to QT prolongation potential * PT/OT (3) Multifocal atrial tachycardia: Code(s): I47.1 - Supraventricular tachycardia Status: Acute Assessment and Plan: * 01/12 switch to PO diltiazem CD * Monitor (4) HTN (hypertension): Qualifiers: Hypertension type: essential hypertension Qualified Code(s): I10 - Essential (primary) hypertension Code(s): I10 - Essential (primary) hypertension Status: Chronic Assessment and Plan: * Monitor (5) Multiple sclerosis: Code(s): G35 - Multiple sclerosis Status: Chronic Assessment and Plan: * On steroid taper as outpatient * Follows with outside neurologist (6) Anxiety: Code(s): F41.9 - Anxiety disorder, unspecified Status: Chronic Assessment and Plan: * D/w son prior dx of bipolar from [facility] * He seems delusional and confabulating but is oriented to year and month, thought he was in [facility] * Increase Zyprexa and Seroquel Subjective Date/time seen: 01/14/20 09:16 Interval history: Agitated last night. Confabulating this AM. Review of Systems Review of Systems: ROS unobtainable: unobtainable due to mental status Exam Narrative: Exam Narrative: HEENT: EOMI, PERRL, pharyngeal mucosa pink and intact NECK: No JVD, adenopathy, or thyromegaly CHEST: Decreased BS HEART: NL S1/S2, regular, no murmur ABDOMEN: BS+, soft, nontender, no mass, no bruits EXTREMITIES: No cyanosis, edema, or clubbing NEUROLOGIC: CN intact and symmetric to inspection. MUSCULOSKELETAL: Tone and strength symmetric. PSYCH: Alert. Oriented to person, place, and time. Objective Data Vital Signs Vital Signs: Vital Signs - 24 hr 01/13/20 09:20 01/13/20 09:45 01/13/20 09:48 Temperature 98.2 F Pulse Rate 91 88 Respiratory Rate 30 H 20 Blood Pressure 119/75 Pulse Oximetry 91 95 01/13/20 09:57 01/13/20 10:00 01/13/20 12:00 Temperature 98.4 F Pulse Rate 89 97 92 Respiratory Rate 18 24 H Blood Pressure 155/77 H Pulse Oximetry 97 01/13/20 14:00 01/13/20 15:41 01/13/20 15:51 Temperature Pulse Rate 101 H 103 H 99 Respiratory Rate 18 18 Blood Pressure Pulse Oximetry 01/13/20 16:00 01/13/20 18:00 01/13/20 18:44 Temperature 96.0 F L Pul
--- NOTE | 2020-01-14 09:16 | PM.IMPN ---
Progress Note: A&P Assessment and Plan (1) Respiratory failure: Qualifiers: Chronicity: acute Respiratory failure complication: hypoxia Qualified Code(s): J96.01 - Acute respiratory failure with hypoxia Code(s): J96.90 - Respiratory failure, unspecified, unspecified whether with hypoxia or hypercapnia Status: Acute Assessment and Plan: Improving Wean oxygen as tolerated Continue PRN bipap Treatment as outlined below (2) COPD (chronic obstructive pulmonary disease): Qualifiers: COPD type: COPD with acute lower respiratory infection Qualified Code(s): J44.0 - Chronic obstructive pulmonary disease with (acute) lower respiratory infection Code(s): J44.9 - Chronic obstructive pulmonary disease, unspecified Status: Chronic Assessment and Plan: RML PNA by CTA chest Continue cefepime day 2 Stopped azithromycin and vancomycin 01/12 and utilize doxycycline due to QT prolongation potential PT/OT (3) Multifocal atrial tachycardia: Code(s): I47.1 - Supraventricular tachycardia Status: Acute Assessment and Plan: 01/12 switch to PO diltiazem CD Monitor (4) HTN (hypertension): Qualifiers: Hypertension type: essential hypertension Qualified Code(s): I10 - Essential (primary) hypertension Code(s): I10 - Essential (primary) hypertension Status: Chronic Assessment and Plan: Monitor (5) Multiple sclerosis: Code(s): G35 - Multiple sclerosis Status: Chronic Assessment and Plan: On steroid taper as outpatient Follows with outside neurologist (6) Anxiety: Code(s): F41.9 - Anxiety disorder, unspecified Status: Chronic Assessment and Plan: D/w son prior dx of bipolar from [facility] He seems delusional and confabulating but is oriented to year and month, thought he was in [facility] Increase Zyprexa and Seroquel Subjective Date/time seen: 01/14/20 09:16 Interval history: Agitated last night. Confabulating this AM. Review of Systems Review of Systems: ROS unobtainable: unobtainable due to mental status Exam Narrative: Exam Narrative: HEENT: EOMI, PERRL, pharyngeal mucosa pink and intact NECK: No JVD, adenopathy, or thyromegaly CHEST: Decreased BS HEART: NL S1/S2, regular, no murmur ABDOMEN: BS+, soft, nontender, no mass, no bruits EXTREMITIES: No cyanosis, edema, or clubbing NEUROLOGIC: CN intact and symmetric to inspection. MUSCULOSKELETAL: Tone and strength symmetric. PSYCH: Alert. Oriented to person, place, and time. Objective Data Vital Signs Vital Signs: Vital Signs - 24 hr 01/13/20 09:20 01/13/20 09:45 01/13/20 09:48 Temperature 98.2 F Pulse Rate 91 88 Respiratory Rate 30 H 20 Blood Pressure 119/75 Pulse Oximetry 91 95 01/13/20 09:57 01/13/20 10:00 01/13/20 12:00 Temperature 98.4 F Pulse Rate 89 97 92 Respiratory Rate 18 24 H Blood Pressure 155/77 H Pulse Oximetry 97 01/13/20 14:00 01/13/20 15:41 01/13/20 15:51 Temperature Pulse Rate 101 H 103 H 99 Respiratory Rate 18 18 Blood Pressure Pulse Oximetry 01/13/20 16:00 01/13/20 18:00 01/13/20 18:44 Temperature 96.0 F L Pulse Rate 114 H 118 H 115 H Respiratory Rate 22 H Blood Pressure 155/60 H Pulse Oximetry 97 01/13/20 20:00 01/13/20 20:09 01/13/20 21:25 Temperature 97.6 F Pulse Rate 111 H 108 H 97 Respiratory Rate 24 H 18 Blood Pressure 142/73 H Pulse Oximetry 95 01/13/20 21:32 01/13/20 21:33 01/13/20 23:34 Temperature 97.7 F Pulse Rate 97 97 Respiratory Rate 18 22 H Blood Pressure 123/57 L Pulse Oximetry 95 94 01/14/20 02:55 01/14/20 03:07 01/14/20 03:30 Temperature 97.5 F L Pulse Rate 98 96 108 H Respiratory Rate 18 18 22 H Blood Pressure 163/87 H Pulse Oximetry 96 01/14/20 07:08 Temperature 98.7 F Pulse Rate 97 Respiratory Rate 22 H Blood Pressure 163/79 H Pulse Oximetry 94
--- NOTE | 2020-01-14 09:36 | WPDCDIQUERY2 ---
CDI Query Clarification Request -COPD with acute lower respiratory tract infection has been documented - RML PNA by CTA chest has been documented -Coders cannot code from CTA chest findings If you agree with CTA findings of RML PNA, please document as a diagnosis.
[2020-01-14] MEDS: allopurinoL 300 MG TABLET PO (10:14)
[2020-01-14] MEDS: NIACIN 100 MG TABLET PO ×3 (10:14→17:24)
[2020-01-14] MEDS: THIAMINE HCL 100 MG TABLET PO (10:15)
[2020-01-14] MEDS: predniSONE 20 MG TABLET 40 MG PO (10:15)
[2020-01-14] MEDS: ACETAMINOPHEN 325 MG TABLET 650 MG PO ×2 (10:15→21:15)
[2020-01-14] MEDS: DOXYCYCLINE HYCLATE 100 MG TABLET PO ×2 (10:15→20:51)
[2020-01-14] MEDS: ENOXAPARIN 30 MG/0.3 ML SYRINGE SUB-Q (10:15)
[2020-01-14 18:53] LABS: Free T4 Free Thyroxine Reflex 1.57 ng/dL (0.78-2.19)
[2020-01-14] MEDS: QUEtiapine FUMARATE 100 MG TABLET PO (20:51)
[2020-01-15] VITALS (17 sets, daily range): BP systolic 133–169; BP diastolic 70–108; PULSE 72–136; RESP 16–38; TEMP 36.4–36.9; O2SAT 94–100
[2020-01-15] MEDS: OLANZapine 10 MG INJ VIAL 5 MG IM (00:31)
[2020-01-15] MEDS: IPRATROPIUM BR 0.02% INH SOLN 0.5 MG/2.5 ML VIAL INHALATION ×4 (02:09→20:17)
[2020-01-15] MEDS: ALBUTEROL SULFATE NEB 2.5 MG/0.5 ML INH 5 MG INHALATION ×4 (02:09→20:17)
[2020-01-15] MEDS: LORAZEPAM INJ 2 MG/ML VIAL 0.5 MG IV PUSH ×2 (04:40→17:44)
[2020-01-15 04:48] LABS: Hematocrit 32.9 % (42.0-52.0); Hemoglobin 10.4 g/dL (14.0-18.0); Mean Corpuscular HGB Conc 31.6 g/dl (32-36); Mean Corpuscular Hemoglobin 30.7 pg (26-34); Mean Corpuscular Volume 97.1 fl (80-100); Mean Platelet Volume 10.1 fl (7.4-10.4); Platelet Count Result 185 k/mm3 (150-375); Red Blood Count 3.39 M/mm3 (4.6-6.20); Red Cell Distribution Width 12.2 % (11.5-14.5); White Blood Count 9.4 K/mm3 (4.5-10.0)
[2020-01-15 04:54] LABS: Blood Urea Nitrogen 38 mg/dL (9-20); Carbon Dioxide 32 mmol/L (22-30); Chloride 102 mmol/L (98-107); Estimated CRCL calculation 61 ml/min; Estimated Glomerular Filt Rate > 60; Glucose 118 mg/dL (75-110); Potassium 3.8 mmol/L (3.4-5.0); Sodium 142 mmol/L (137-145)
--- NOTE | 2020-01-15 09:18 | PM.PNCARD ---
Progress Note: A&P Assessment and Plan (1) Multifocal atrial tachycardia: Code(s): I47.1 - Supraventricular tachycardia Status: Acute Assessment and Plan: multifocal atrial tachycardia in the setting of resp distress 2D echo with normal EF and no significant valvular disease Heart rate better with diltiazem. No indication for anticoagulation. (2) AMS (altered mental status): Code(s): R41.82 - Altered mental status, unspecified Status: Acute Assessment and Plan: Hospital delirium vs steroids induced ? management per primary team. (3) Respiratory failure: Qualifiers: Chronicity: acute Respiratory failure complication: hypoxia Qualified Code(s): J96.01 - Acute respiratory failure with hypoxia Code(s): J96.90 - Respiratory failure, unspecified, unspecified whether with hypoxia or hypercapnia Status: Acute Assessment and Plan: Refusing Bipap. (4) Multiple sclerosis: Code(s): G35 - Multiple sclerosis Status: Chronic (5) HTN (hypertension): Qualifiers: Hypertension type: essential hypertension Qualified Code(s): I10 - Essential (primary) hypertension Code(s): I10 - Essential (primary) hypertension Status: Chronic Assessment and Plan: Well controlled (6) COPD (chronic obstructive pulmonary disease): Qualifiers: COPD type: COPD with acute lower respiratory infection Qualified Code(s): J44.0 - Chronic obstructive pulmonary disease with (acute) lower respiratory infection Code(s): J44.9 - Chronic obstructive pulmonary disease, unspecified Status: Chronic Additional Plan Will sign off at this time, please call for any cardiac concerns Subjective Date/time seen: 01/15/20 09:18 Interval history: Agitated last night. Confabulating this AM. Exam Narrative: Exam Narrative: Awake, but confused, seems to be having no active distress at this time Neck is supple no obvious JVD, no carotid bruit Chest: Decreased breathing sound on the bases noted with bilateral wheezing noted Cardiovascular: Regular rate and rhythm, 2/6 systolic murmur noted left sternal border Abdomen: Soft nontender bowel sounds positive Extremities: No edema has good pulses distally bilaterally Objective Data Vital Signs Vital Signs: Vital Signs - 24 hr 01/14/20 10:19 01/14/20 10:31 01/14/20 14:00 Temperature Pulse Rate 108 H 113 H Respiratory Rate 26 H 38 H 44 H Blood Pressure Pulse Oximetry 01/14/20 14:10 01/14/20 16:00 01/14/20 20:00 Temperature 36.7 C 37.4 C Pulse Rate 115 H 75 115 H Respiratory Rate 40 H 24 H 24 H Blood Pressure 136/58 L 174/104 H Pulse Oximetry 99 94 01/14/20 21:14 01/14/20 21:16 01/14/20 21:19 Temperature Pulse Rate 115 H 118 H Respiratory Rate 36 H 36 H Blood Pressure Pulse Oximetry 94 01/15/20 00:00 01/15/20 02:09 01/15/20 02:18 Temperature 36.9 C Pulse Rate 136 H 115 H 120 H Respiratory Rate 16 36 H 38 H Blood Pressure 147/70 H Pulse Oximetry 100 01/15/20 04:30 01/15/20 07:47 01/15/20 07:58 Temperature Pulse Rate 134 H 119 H 122 H Respiratory Rate 26 H 34 H 38 H Blood Pressure Pulse Oximetry 95 01/15/20 08:00 Temperature 36.6 C Pulse Rate 80 Respiratory Rate 26 H Blood Pressure 160/107 H Pulse Oximetry 95 Intake/Output Intake/Output: Intake & Output 01/12/20 01/13/20 01/14/20 01/15/20 23:59 23:59 23:59 23:59 Intake Total 450 820 590 100 Output Total 350 Balance 450 470 590 100 Meds/Results Medications: Active Medications Generic Name Dose Route Start Last Admin Trade Name Freq PRN Reason Stop Dose Admin Acetaminophen 650 mg 01/13/20 11:04 01/14/20 21:15 Tylenol Tablet PO 650 mg Q4H PRN Administration Headache or mild pain Albuterol 5 mg 01/12/20 14:00 01/15/20 07:47 Albuterol Sulf Neb 2.5mg/0.5ml INHALATION 5 mg Q6HRT NOEMI Administration Albuterol 2.
--- NOTE | 2020-01-15 09:37 | P.PNIM_ITS ---
Progress Note: A&P Assessment and Plan (1) Respiratory failure: Qualifiers: Chronicity: acute Respiratory failure complication: hypoxia Qualified Code(s): J96.01 - Acute respiratory failure with hypoxia Code(s): J96.90 - Respiratory failure, unspecified, unspecified whether with hypoxia or hypercapnia Status: Acute Assessment and Plan: * Improving * Wean oxygen as tolerated * Continue PRN bipap * Treatment as outlined below (2) COPD (chronic obstructive pulmonary disease): Qualifiers: COPD type: COPD with acute lower respiratory infection Qualified Code(s ): J44.0 - Chronic obstructive pulmonary disease with (acute) lower respiratory infection Code(s): J44.9 - Chronic obstructive pulmonary disease, unspecified Status: Chronic Assessment and Plan: * RML PNA by CTA chest * Continue cefepime day 2 * Stopped azithromycin and vancomycin 01/12 and utilize doxycycline due to QT prolongation potential * PT/OT (3) Multifocal atrial tachycardia: Code(s): I47.1 - Supraventricular tachycardia Status: Acute Assessment and Plan: * 01/12 switched to PO diltiazem CD (4) HTN (hypertension): Qualifiers: Hypertension type: essential hypertension Qualified Code(s): I10 - Essential (primary) hypertension Code(s): I10 - Essential (primary) hypertension Status: Chronic Assessment and Plan: * Monitor (5) Multiple sclerosis: Code(s): G35 - Multiple sclerosis Status: Chronic Assessment and Plan: * On steroid taper as outpatient * Follows with outside neurologist (6) Anxiety: Code(s): F41.9 - Anxiety disorder, unspecified Status: Chronic Assessment and Plan: * 3/6 D/w son prior dx of bipolar from [facility] * 3/ He seemed delusional and confabulating but is oriented to year and month, thought he was in [facility] * Acute illness, steroids, hopitalization, underlying psychiatric issues all likely contributing * Increase HS quetiapine to 200mg Subjective Date/time seen: 01/15/20 09:37 Interval history: Agitated again last PM. Required Zyprexa 5mg IM. Sleeping, but intermittently agitated. Review of Systems Review of Systems: ROS unobtainable: unobtainable due to mental status Exam Narrative: Exam Narrative: HEENT: EOMI, PERRL, pharyngeal mucosa pink and intact NECK: No JVD, adenopathy, or thyromegaly CHEST: Decreased BS HEART: NL S1/S2, regular, no murmur ABDOMEN: BS+, soft, nontender, no mass, no bruits EXTREMITIES: No cyanosis, edema, or clubbing NEUROLOGIC: CN intact and symmetric to inspection. MUSCULOSKELETAL: Tone and strength symmetric. PSYCH: Alert. Oriented to person, place, and time. Objective Data Vital Signs Vital Signs: Vital Signs - 24 hr 01/14/20 10:19 01/14/20 10:31 01/14/20 14:00 Temperature Pulse Rate 108 H 113 H Respiratory Rate 26 H 38 H 44 H Blood Pressure Pulse Oximetry 01/14/20 14:10 01/14/20 16:00 01/14/20 20:00 Temperature 98.1 F 99.3 F Pulse Rate 115 H 75 115 H Respiratory Rate 40 H 24 H 24 H Blood Pressure 136/58 L 174/104 H Pulse Oximetry 99 94 01/14/20 21:14 01/14/20 21:16 01/14/20 21:19 Temperature Pulse Rate 115 H 118 H Respiratory Rate 36 H 36 H Blo
--- NOTE | 2020-01-15 09:37 | PM.IMPN ---
Progress Note: A&P Assessment and Plan (1) Respiratory failure: Qualifiers: Chronicity: acute Respiratory failure complication: hypoxia Qualified Code(s): J96.01 - Acute respiratory failure with hypoxia Code(s): J96.90 - Respiratory failure, unspecified, unspecified whether with hypoxia or hypercapnia Status: Acute Assessment and Plan: Improving Wean oxygen as tolerated Continue PRN bipap Treatment as outlined below (2) COPD (chronic obstructive pulmonary disease): Qualifiers: COPD type: COPD with acute lower respiratory infection Qualified Code(s): J44.0 - Chronic obstructive pulmonary disease with (acute) lower respiratory infection Code(s): J44.9 - Chronic obstructive pulmonary disease, unspecified Status: Chronic Assessment and Plan: RML PNA by CTA chest Continue cefepime day 2 Stopped azithromycin and vancomycin 01/12 and utilize doxycycline due to QT prolongation potential PT/OT (3) Multifocal atrial tachycardia: Code(s): I47.1 - Supraventricular tachycardia Status: Acute Assessment and Plan: 01/12 switched to PO diltiazem CD (4) HTN (hypertension): Qualifiers: Hypertension type: essential hypertension Qualified Code(s): I10 - Essential (primary) hypertension Code(s): I10 - Essential (primary) hypertension Status: Chronic Assessment and Plan: Monitor (5) Multiple sclerosis: Code(s): G35 - Multiple sclerosis Status: Chronic Assessment and Plan: On steroid taper as outpatient Follows with outside neurologist (6) Anxiety: Code(s): F41.9 - Anxiety disorder, unspecified Status: Chronic Assessment and Plan: 01/13 D/w son prior dx of bipolar from [facility] 01/13 He seemed delusional and confabulating but is oriented to year and month, thought he was in [facility] Acute illness, steroids, hopitalization, underlying psychiatric issues all likely contributing Increase HS quetiapine to 200mg Subjective Date/time seen: 01/15/20 09:37 Interval history: Agitated again last PM. Required Zyprexa 5mg IM. Sleeping, but intermittently agitated. Review of Systems Review of Systems: ROS unobtainable: unobtainable due to mental status Exam Narrative: Exam Narrative: HEENT: EOMI, PERRL, pharyngeal mucosa pink and intact NECK: No JVD, adenopathy, or thyromegaly CHEST: Decreased BS HEART: NL S1/S2, regular, no murmur ABDOMEN: BS+, soft, nontender, no mass, no bruits EXTREMITIES: No cyanosis, edema, or clubbing NEUROLOGIC: CN intact and symmetric to inspection. MUSCULOSKELETAL: Tone and strength symmetric. PSYCH: Alert. Oriented to person, place, and time. Objective Data Vital Signs Vital Signs: Vital Signs - 24 hr 01/14/20 10:19 01/14/20 10:31 01/14/20 14:00 Temperature Pulse Rate 108 H 113 H Respiratory Rate 26 H 38 H 44 H Blood Pressure Pulse Oximetry 01/14/20 14:10 01/14/20 16:00 01/14/20 20:00 Temperature 98.1 F 99.3 F Pulse Rate 115 H 75 115 H Respiratory Rate 40 H 24 H 24 H Blood Pressure 136/58 L 174/104 H Pulse Oximetry 99 94 01/14/20 21:14 01/14/20 21:16 01/14/20 21:19 Temperature Pulse Rate 115 H 118 H Respiratory Rate 36 H 36 H Blood Pressure Pulse Oximetry 94 01/15/20 00:00 01/15/20 02:09 01/15/20 02:18 Temperature 98.4 F Pulse Rate 136 H 115 H 120 H Respiratory Rate 16 36 H 38 H Blood Pressure 147/70 H Pulse Oximetry 100 01/15/20 04:30 01/15/20 07:47 01/15/20 07:58 Temperature Pulse Rate 134 H 119 H 122 H Respiratory Rate 26 H 34 H 38 H Blood Pressure Pulse Oximetry 95 01/15/20 08:00 Temperature 97.9 F Pulse Rate 80 Respiratory Rate 26 H Blood Pressure 160/107 H Pulse Oximetry 95 Intake/Output Intake/Output: Intake & Output 01/12/20 01/13/20 01/14/20 01/15/20 23:59 23:59 23:59 23:59 Intake Total 450 820 590 100 Output Total 350 Ba
[2020-01-15 10:52] LABS: Alveolar/Arterial O2 Gradient 72.1 mmHg; Base Excess ABG 5.5 mEq/l (+/-2.0); Fractional Inspired Oxygen 35 %; HCO3 ABG 29.7 mEq/l (22.0-26.0); Oxygen Content ABG 16.5 %vol (16.0-22.0); Oxygen Saturation ABG 98.7 % (95.0-100.0); Oxyhemoglobin 97.1 % THb (90.0-100.0); PCO2 ABG 41.7 mmHg (35.0-45.0); PO2 FiO2 Ratio Arterial Blood 3.69 %; Total Hemoglobin 11.9 g/dL (12.0-18.0)
[2020-01-15 10:53] LABS: Site Drawn RIGHT BRACHIAL
[2020-01-15 10:54] LABS: Device NON-INVASIVE VENT; Non-Invasive Expiratory Pressure 5 CMH2O; Non-Invasive Inspiratory Pressure 15 CMH2O; Non-Invasive Vent Rate 4 /MIN
--- NOTE | 2020-01-15 13:28 | PCPTNOTE ---
RN denied patient participating in physical therapy at this time stating that he can't hardly breath right now.
[2020-01-15] MEDS: predniSONE 20 MG TABLET PO (16:13)
[2020-01-15] MEDS: ENOXAPARIN 30 MG/0.3 ML SYRINGE SUB-Q (16:14)
[2020-01-15] MEDS: DOXYCYCLINE HYCLATE 100 MG TABLET PO ×2 (16:14→21:11)
[2020-01-15] MEDS: NIACIN 100 MG TABLET PO (16:16)
[2020-01-15] MEDS: allopurinoL 300 MG TABLET PO (16:16)
[2020-01-15] MEDS: THIAMINE HCL 100 MG TABLET PO (16:17)
[2020-01-15] MEDS: QUEtiapine FUMARATE 100 MG TABLET 200 MG PO (21:11)
[2020-01-16] VITALS (17 sets, daily range): BP systolic 127–149; BP diastolic 87–102; PULSE 71–113; RESP 22–40; TEMP 36.3–37; O2SAT 88–99
[2020-01-16] MEDS: LORAZEPAM INJ 2 MG/ML VIAL 0.5 MG IV PUSH ×2 (00:21→23:41)
[2020-01-16 05:03] LABS: Hematocrit 34.7 % (42.0-52.0); Hemoglobin 10.6 g/dL (14.0-18.0); Mean Corpuscular HGB Conc 30.5 g/dl (32-36); Mean Corpuscular Hemoglobin 30.4 pg (26-34); Mean Corpuscular Volume 99.4 fl (80-100); Platelet Count Result 213 k/mm3 (150-375); Red Blood Count 3.49 M/mm3 (4.6-6.20); Red Cell Distribution Width 12.1 % (11.5-14.5)
[2020-01-16 05:18] LABS: Blood Urea Nitrogen 35 mg/dL (9-20); Calcium 9.1 mg/dL (8.4-10.2); Carbon Dioxide 34 mmol/L (22-30); Chloride 108 mmol/L (98-107); Estimated CRCL calculation 51 ml/min; Estimated Glomerular Filt Rate > 60; Glucose 111 mg/dL (75-110); Potassium 4.4 mmol/L (3.4-5.0); Sodium 144 mmol/L (137-145)
--- NOTE | 2020-01-16 05:30 | PC.NURSE ---
Daylight Savings Time For Daylight Savings Time Ending in the Fall - Clocks are moved back. For Daylight Savings Time Beginning in the Spring - Clocks are moved ahead. For [facility], the time of change occurs at 0200 hrs. Time is taken from the gravity prospecting observer. This entry on the patient's chart recognizes the change in time reflected during documentation. Example: 2 entries for vital signs may be charted for 0200 hrs.
[2020-01-16] MEDS: IPRATROPIUM BR 0.02% INH SOLN 0.5 MG/2.5 ML VIAL INHALATION ×3 (08:14→21:28)
[2020-01-16] MEDS: ALBUTEROL SULFATE NEB 2.5 MG/0.5 ML INH 5 MG INHALATION ×3 (08:15→21:28)
[2020-01-16 10:30] LABS: Alveolar/Arterial O2 Gradient 116.6 mmHg; Base Excess ABG 5.4 mEq/l (+/-2.0); Fractional Inspired Oxygen 35 %; HCO3 ABG 29.8 mEq/l (22.0-26.0); Oxygen Content ABG 15.4 %vol (16.0-22.0); Oxygen Saturation ABG 96.6 % (95.0-100.0); Oxyhemoglobin 94.8 % THb (90.0-100.0); PCO2 ABG 43.3 mmHg (35.0-45.0); PO2 ABG 82.6 mmHg (80.0-100.0); PO2 FiO2 Ratio Arterial Blood 2.36 %; Total Hemoglobin 11.5 g/dL (12.0-18.0); pH ABG 7.456 (7.350-7.450)
[2020-01-16 10:31] LABS: Device NON-INVASIVE VENT; Modified Allen's Test Pass; Non-Invasive Expiratory Pressure 5 CMH2O; Non-Invasive Inspiratory Pressure 15 CMH2O; Non-Invasive Vent Rate 4 /MIN; Site Drawn LEFT RADIAL
--- NOTE | 2020-01-16 13:32 | P.PNIM_ITS ---
Progress Note: A&P Assessment and Plan (1) Respiratory failure: Qualifiers: Chronicity: acute Respiratory failure complication: hypoxia Qualified Code(s): J96.01 - Acute respiratory failure with hypoxia Code(s): J96.90 - Respiratory failure, unspecified, unspecified whether with hypoxia or hypercapnia Status: Acute Assessment and Plan: * Improving * Wean oxygen as tolerated * Continue PRN and nocturnal bipap * Treatment as outlined below * 18:00 met with patient and son at bedside. Patient wants code status to be 'No Intubation . D/w son and he concurs. He wishes to consider palliative care/hospice in the AM, dependent upon progress. He understands that if his father will not wear BiPap more and will not submit to ET intubation for ventilation, then his respiratory muscles will likely fail soon and CO2 narcosis will ensue, leading to . (2) COPD (chronic obstructive pulmonary disease): Qualifiers: COPD type: COPD with acute lower respiratory infection Qualified Code(s): J44.0 - Chronic obstructive pulmonary disease with (acute) lower respiratory infection Code(s): J44.9 - Chronic obstructive pulmonary disease, unspecified Status: Chronic Assessment and Plan: * RML PNA by CTA chest * Continue cefepime day 4 * Stopped azithromycin and vancomycin 3 and utilize doxycycline due to QT prolongation potential * PT/OT * 3 increased steroids, but monitor mental status (3) Multifocal atrial tachycardia: Code(s): I47.1 - Supraventricular tachycardia Status: Acute Assessment and Plan: * 01/12 switched to PO diltiazem CD * 3/8 HR control improved with diltiazem CD 360mg (4) HTN (hypertension): Qualifiers: Hypertension type: essential hypertension Qualified Code(s): I10 - Essential (primary) hypertension Code(s): I10 - Essential (primary) hypertension Status: Chronic Assessment and Plan: * Monitor (5) Multiple sclerosis: Code(s): G35 - Multiple sclerosis Status: Chronic Assessment and Plan: * On steroid taper as outpatient * Follows with outside neurologist (6) Anxiety: Code(s): F41.9 - Anxiety disorder, unspecified Status: Chronic Assessment and Plan: * 3 D/w son prior dx of bipolar from [facility] * 01/13 He seemed delusional and confabulating but is oriented to year and month, thought he was in [facility] * Acute illness, steroids, hopitalization, underlying psychiatric issues all likely contributing * Increase HS quetiapine to 200mg Subjective Date/time seen: 01/16/20 13:32 Interval history: Wore bipap last PM. Slept better. Tolerating diet. Cooperating with therapy. Asked about going home. Review of Systems Review of Systems: All systems reviewed & are unremarkable except as noted in HPI and below Exam Narrative: Exam Narrative: HEENT: EOMI, PERRL, pharyngeal mucosa pink and intact NECK: No JVD, adenopathy, or thyromegaly CHEST: Coarse Rhonchi HEART: NL S1/S2, regular, no murmur ABDOMEN: BS+, soft, nontender, no mass, no bruits EXTREMITIES: No cyanosis, edema, or clubbing NEUROLOGIC: CN intact and symmetric to inspection. MUSCULOSKELETAL: Tone and strength symmetric. PSYCH: Alert. Oriented to person, place, and time. Objective Data Vital Signs Vital Signs: Vital Signs - 24 hr 01/15/20 13:45 01/15/20 13:53 01/15/20 16:00 Temperature 98.3 F Pulse Rate
--- NOTE | 2020-01-16 13:32 | PM.IMPN ---
Progress Note: A&P Assessment and Plan (1) Respiratory failure: Qualifiers: Chronicity: acute Respiratory failure complication: hypoxia Qualified Code(s): J96.01 - Acute respiratory failure with hypoxia Code(s): J96.90 - Respiratory failure, unspecified, unspecified whether with hypoxia or hypercapnia Status: Acute Assessment and Plan: Improving Wean oxygen as tolerated Continue PRN and nocturnal bipap Treatment as outlined below 18:00 met with patient and son at bedside. Patient wants code status to be 'No Intubation . D/w son and he concurs. He wishes to consider palliative care/hospice in the AM, dependent upon progress. He understands that if his father will not wear BiPap more and will not submit to ET intubation for ventilation, then his respiratory muscles will likely fail soon and CO2 narcosis will ensue, leading to . (2) COPD (chronic obstructive pulmonary disease): Qualifiers: COPD type: COPD with acute lower respiratory infection Qualified Code(s): J44.0 - Chronic obstructive pulmonary disease with (acute) lower respiratory infection Code(s): J44.9 - Chronic obstructive pulmonary disease, unspecified Status: Chronic Assessment and Plan: RML PNA by CTA chest Continue cefepime day 4 Stopped azithromycin and vancomycin 01/12 and utilize doxycycline due to QT prolongation potential PT/OT 01/15 increased steroids, but monitor mental status (3) Multifocal atrial tachycardia: Code(s): I47.1 - Supraventricular tachycardia Status: Acute Assessment and Plan: 01/12 switched to PO diltiazem CD 3/ HR control improved with diltiazem CD 360mg (4) HTN (hypertension): Qualifiers: Hypertension type: essential hypertension Qualified Code(s): I10 - Essential (primary) hypertension Code(s): I10 - Essential (primary) hypertension Status: Chronic Assessment and Plan: Monitor (5) Multiple sclerosis: Code(s): G35 - Multiple sclerosis Status: Chronic Assessment and Plan: On steroid taper as outpatient Follows with outside neurologist (6) Anxiety: Code(s): F41.9 - Anxiety disorder, unspecified Status: Chronic Assessment and Plan: 01/13 D/w son prior dx of bipolar from [facility] 01/13 He seemed delusional and confabulating but is oriented to year and month, thought he was in [facility] Acute illness, steroids, hopitalization, underlying psychiatric issues all likely contributing Increase HS quetiapine to 200mg Subjective Date/time seen: 01/16/20 13:32 Interval history: Wore bipap last PM. Slept better. Tolerating diet. Cooperating with therapy. Asked about going home. Review of Systems Review of Systems: All systems reviewed & are unremarkable except as noted in HPI and below Exam Narrative: Exam Narrative: HEENT: EOMI, PERRL, pharyngeal mucosa pink and intact NECK: No JVD, adenopathy, or thyromegaly CHEST: Coarse Rhonchi HEART: NL S1/S2, regular, no murmur ABDOMEN: BS+, soft, nontender, no mass, no bruits EXTREMITIES: No cyanosis, edema, or clubbing NEUROLOGIC: CN intact and symmetric to inspection. MUSCULOSKELETAL: Tone and strength symmetric. PSYCH: Alert. Oriented to person, place, and time. Objective Data Vital Signs Vital Signs: Vital Signs - 24 hr 01/15/20 13:45 01/15/20 13:53 01/15/20 16:00 Temperature 98.3 F Pulse Rate 115 H 112 H 117 H Respiratory Rate 29 H 32 H 32 H Blood Pressure 133/97 H Pulse Oximetry 98 94 01/15/20 19:08 01/15/20 20:00 01/15/20 20:17 Temperature 97.7 F Pulse Rate 94 94 101 H Respiratory Rate 22 H 22 H 32 H Blood Pressure 169/107 H Pulse Oximetry 95 95 01/15/20 20:31 01/16/20 00:00 01/16/20 03:00 Temperature 97.4 F L Pulse Rate 113 H 87 Respiratory Rate 33 H 22 H Blood Pressure 127/87 Pulse Oximetry 93 92 01/16/20 07:00 01/16/20 08:15 01/16/20 08:18 Temperature
[2020-01-16] MEDS: ENOXAPARIN 30 MG/0.3 ML SYRINGE SUB-Q (13:53)
[2020-01-16] MEDS: NIACIN 100 MG TABLET PO ×2 (13:53→17:12)
[2020-01-16] MEDS: DOXYCYCLINE HYCLATE 100 MG TABLET PO ×2 (13:54→21:20)
[2020-01-16] MEDS: predniSONE 20 MG TABLET PO ×2 (13:54→21:20)
[2020-01-16] MEDS: allopurinoL 300 MG TABLET PO (13:54)
[2020-01-16] MEDS: THIAMINE HCL 100 MG TABLET PO (13:55)
--- NOTE | 2020-01-16 15:57 | PCPTNOTE ---
Per RN, patient not to be seen at this time.
[2020-01-16] MEDS: ALBUTEROL SULFATE NEB 2.5 MG/0.5 ML INH INHALATION (17:44)
[2020-01-16] MEDS: QUEtiapine FUMARATE 100 MG TABLET 200 MG PO (21:20)
--- NOTE | 2020-01-17 04:00 | PCRCNOTE ---
Window of time for administration has passed. See next scheduled administration.
[2020-01-17 05:06] VITALS: BP 147/65; PULSE 114; RESP 24; TEMP 37.1; O2SAT 92
[2020-01-17 05:06] LABS: Hematocrit 31.2 % (42.0-52.0); Hemoglobin 9.7 g/dL (14.0-18.0); Mean Corpuscular HGB Conc 31.1 g/dl (32-36); Mean Corpuscular Hemoglobin 30.7 pg (26-34); Mean Corpuscular Volume 98.7 fl (80-100); Mean Platelet Volume 10.5 fl (7.4-10.4); Platelet Count Result 193 k/mm3 (150-375); Red Blood Count 3.16 M/mm3 (4.6-6.20); Red Cell Distribution Width 11.9 % (11.5-14.5); White Blood Count 8.8 K/mm3 (4.5-10.0)
[2020-01-17 05:16] LABS: Blood Urea Nitrogen 32 mg/dL (9-20); Calcium 8.4 mg/dL (8.4-10.2); Carbon Dioxide 30 mmol/L (22-30); Chloride 104 mmol/L (98-107); Estimated CRCL calculation 57 ml/min; Estimated Glomerular Filt Rate > 60; Glucose 131 mg/dL (75-110); Potassium 4.1 mmol/L (3.4-5.0); Sodium 137 mmol/L (137-145)
[2020-01-17] MEDS: LORAZEPAM INJ 2 MG/ML VIAL 1 MG IV PUSH (06:07)
--- NOTE | 2020-01-17 07:14 | PCRCNOTE ---
PTS SON REFUSED ABGS. RN AWARE.
[2020-01-17 08:06] VITALS: BP 171/128; PULSE 87; RESP 21; TEMP 36.8; O2SAT 97
--- NOTE | 2020-01-17 09:09 | PM.IMPN ---
Progress Note: A&P Assessment and Plan (1) Respiratory failure: Qualifiers: Chronicity: acute Respiratory failure complication: hypoxia Qualified Code(s): J96.01 - Acute respiratory failure with hypoxia Code(s): J96.90 - Respiratory failure, unspecified, unspecified whether with hypoxia or hypercapnia Status: Acute Assessment and Plan: Improving Wean oxygen as tolerated Patient rested without bipap Treatment as outlined below 01/15 18:00 met with patient and son at bedside. Patient wants code status to be 'No Intubation . D/w son and he concurs. He wishes to consider palliative care/hospice in the AM, dependent upon progress. He understands that if his father will not wear BiPap more and will not submit to ET intubation for ventilation, then his respiratory muscles will likely fail soon and CO2 narcosis will ensue, leading to . 01/16 AM met with son and discussed his decision after 7 PM last night to do comfort care and DNR. He wishes to meet with [facility] today. (2) COPD (chronic obstructive pulmonary disease): Qualifiers: COPD type: COPD with acute lower respiratory infection Qualified Code(s): J44.0 - Chronic obstructive pulmonary disease with (acute) lower respiratory infection Code(s): J44.9 - Chronic obstructive pulmonary disease, unspecified Status: Chronic Assessment and Plan: RML PNA by CTA chest Continue cefepime day 4 Stopped azithromycin and vancomycin 01/12 and utilize doxycycline due to QT prolongation potential PT/OT 01/15 increased steroids, but monitor mental status (3) Multifocal atrial tachycardia: Code(s): I47.1 - Supraventricular tachycardia Status: Acute Assessment and Plan: 01/12 switched to PO diltiazem CD 01/15 HR control improved with diltiazem CD 360mg (4) HTN (hypertension): Qualifiers: Hypertension type: essential hypertension Qualified Code(s): I10 - Essential (primary) hypertension Code(s): I10 - Essential (primary) hypertension Status: Chronic Assessment and Plan: Monitor (5) Multiple sclerosis: Code(s): G35 - Multiple sclerosis Status: Chronic Assessment and Plan: On steroid taper as outpatient Follows with outside neurologist (6) Anxiety: Code(s): F41.9 - Anxiety disorder, unspecified Status: Chronic Assessment and Plan: 01/13 D/w son prior dx of bipolar from [facility] 01/13 He seemed delusional and confabulating but is oriented to year and month, thought he was in [facility] Acute illness, steroids, hopitalization, underlying psychiatric issues all likely contributing Decrease HS quetiapine to 100mg and hold AM olanzepine due to addition of comfort meds Subjective Date/time seen: 01/17/20 09:09 Interval history: More relaxed. Sleeping. Family wishes to let him rest. Review of Systems Review of Systems: ROS unobtainable: unobtainable due to mental condition Exam Narrative: Exam Narrative: HEENT: EOMI, PERRL, pharyngeal mucosa pink and intact NECK: No JVD, adenopathy, or thyromegaly CHEST: Coarse Rhonchi HEART: NL S1/S2, regular, no murmur ABDOMEN: BS+, soft, nontender, no mass, no bruits EXTREMITIES: No cyanosis, edema, or clubbing NEUROLOGIC: CN intact and symmetric to inspection. MUSCULOSKELETAL: Tone and strength symmetric. PSYCH: Drowsy, but arouses easily Objective Data Vital Signs Vital Signs: Vital Signs - 24 hr 01/16/20 10:03 01/16/20 10:18 01/16/20 14:45 Temperature 97.5 F L Pulse Rate 72 71 113 H Respiratory Rate 24 H 22 H 40 H Blood Pressure 138/91 H Pulse Oximetry 97 97 01/16/20 14:51 01/16/20 14:52 01/16/20 17:44 Temperature Pulse Rate 113 H 110 H 98 Respiratory Rate 40 H 40 H 36 H Blood Pressure Pulse Oximetry 97 01/16/20 17:54 01/16/20 18:01 01/16/20 21:05 Temperature 98.6 F 98.6 F Pulse Rate 87 100 97 Respiratory Rate 36 H 34 H 22 H Bl
[2020-01-17] MEDS: IPRATROPIUM BR 0.02% INH SOLN 0.5 MG/2.5 ML VIAL INHALATION (09:24)
[2020-01-17] MEDS: ALBUTEROL SULFATE NEB 2.5 MG/0.5 ML INH 5 MG INHALATION (09:24)
[2020-01-17 09:26] VITALS: PULSE 92; RESP 20; O2SAT 92
--- NOTE | 2020-01-17 09:26 | PCOTNOTE ---
Per RN, patient and family experiencing mourning while discussing comfort/hospice care at this time and does not recommend therapy. Patient not seen for OT session at this time.
--- NOTE | 2020-01-17 09:26 | PCPTNOTE ---
Per RN, hold PT treatment this AM, patient's family discussing comfort care and hospice at this time. Will continue per Plan of Care frequency and duration.
--- NOTE | 2020-01-17 09:33 | PM.PNCARD ---
Progress Note: A&P Assessment and Plan (1) Multifocal atrial tachycardia: Code(s): I47.1 - Supraventricular tachycardia Status: Acute Assessment and Plan: multifocal atrial tachycardia in the setting of resp distress 2D echo with normal EF and no significant valvular disease Heart rate better with diltiazem. No indication for anticoagulation. Will sign off. Please don't hesitate to call with any questions. (2) AMS (altered mental status): Code(s): R41.82 - Altered mental status, unspecified Status: Acute Assessment and Plan: Management per primary team (3) Respiratory failure: Qualifiers: Chronicity: acute Respiratory failure complication: hypoxia Qualified Code(s): J96.01 - Acute respiratory failure with hypoxia Code(s): J96.90 - Respiratory failure, unspecified, unspecified whether with hypoxia or hypercapnia Status: Acute Assessment and Plan: No evidence of volume overload on exam or cardiac component of resp failure (4) Multiple sclerosis: Code(s): G35 - Multiple sclerosis Status: Chronic (5) HTN (hypertension): Qualifiers: Hypertension type: essential hypertension Qualified Code(s): I10 - Essential (primary) hypertension Code(s): I10 - Essential (primary) hypertension Status: Chronic Assessment and Plan: Well controlled (6) COPD (chronic obstructive pulmonary disease): Qualifiers: COPD type: COPD with acute lower respiratory infection Qualified Code(s): J44.0 - Chronic obstructive pulmonary disease with (acute) lower respiratory infection Code(s): J44.9 - Chronic obstructive pulmonary disease, unspecified Status: Chronic Additional Plan Will sign off at this time, please call for any cardiac concerns Subjective Date/time seen: 01/17/20 09:33 Sleeping at the time of my evaluation. Refusing tele monitor however on vital checks his heart rate is acceptable ~ 90s. It has also been documented that he refuses bipap. Now appears breathing comfortably. Review of Systems Review of Systems: ROS unobtainable: unobtainable due to mental condition Exam Narrative: Exam Narrative: Awake, but confused, seems to be having no active distress at this time Neck is supple no obvious JVD, no carotid bruit Chest: Decreased breathing sound on the bases noted with bilateral wheezing noted Cardiovascular: Regular rate and rhythm, 2/6 systolic murmur noted left sternal border Abdomen: Soft nontender bowel sounds positive Extremities: No edema has good pulses distally bilaterally Objective Data Vital Signs Vital Signs: Vital Signs - 24 hr 01/16/20 10:03 01/16/20 10:18 01/16/20 14:45 Temperature 36.4 C L Pulse Rate 72 71 113 H Respiratory Rate 24 H 22 H 40 H Blood Pressure 138/91 H Pulse Oximetry 97 97 01/16/20 14:51 01/16/20 14:52 01/16/20 17:44 Temperature Pulse Rate 113 H 110 H 98 Respiratory Rate 40 H 40 H 36 H Blood Pressure Pulse Oximetry 97 01/16/20 17:54 01/16/20 18:01 01/16/20 21:05 Temperature 37.0 C 37.0 C Pulse Rate 87 100 97 Respiratory Rate 36 H 34 H 22 H Blood Pressure 149/102 H 147/96 H Pulse Oximetry 98 96 01/16/20 21:33 01/17/20 05:06 01/17/20 08:06 Temperature 37.1 C 36.8 C Pulse Rate 97 114 H 87 Respiratory Rate 32 H 24 H 21 H Blood Pressure 147/65 H 171/128 H Pulse Oximetry 92 97 01/17/20 09:26 Temperature Pulse Rate 92 Respiratory Rate 20 Blood Pressure Pulse Oximetry 92 Intake/Output Intake/Output: Intake & Output 01/14/20 01/15/20 01/16/20 01/17/20 22:59 22:59 23:59 23:59 Intake Total 250 Balance 250 Meds/Results Medications: Active Medications Generic Name Dose Route Start Last Admin Trade Name Freq PRN Reason Stop Dose Admin Acetaminophen 650 mg 01/13/20 11:04 01/14/20 21:15 Tylenol Tablet PO 650 mg Q4H PRN Administration Headache or mild pain Albuterol
[2020-01-17 09:34] VITALS: PULSE 78; RESP 20
[2020-01-17] MEDS: ENOXAPARIN 30 MG/0.3 ML SYRINGE SUB-Q (10:20)
[2020-01-17] MEDS: predniSONE 20 MG TABLET 60 MG PO (10:21)
[2020-01-17] MEDS: DOXYCYCLINE HYCLATE 100 MG TABLET PO (10:22)
[2020-01-17] MEDS: THIAMINE HCL 100 MG TABLET PO (10:22)
[2020-01-17] MEDS: allopurinoL 300 MG TABLET PO (10:22)
[2020-01-17] MEDS: NIACIN 100 MG TABLET PO (10:25)
--- NOTE | 2020-01-17 11:44 | P.DS_ITS ---
DS: Diagnosis Admitting Diagnosis Admitting Diagnosis: Respiratory failure, unspecified, unspecified whether with hypoxia or hypercapnia Discharge Diagnosis (1) Respiratory failure: Qualifiers: Chronicity: acute Respiratory failure complication: hypoxia Qualified Code(s): J96.01 - Acute respiratory failure with hypoxia Code(s): J96.90 - Respiratory failure, unspecified, unspecified whether with hypoxia or hypercapnia Status: Acute Assessment and Plan: * Admitted with dyspnea and COPD exacerbation * Treated with oxygen, bipap, and broad spectrum antibiotics, as well as steroids and bronchodilators * Continued with agitation and dyspnea and resistance to care * He remained oriented but delusional * Bipolar meds were adjusted with some improvement in agitation * He refused bipap and was severely dyspnea, prompting increased agitation. * Patient rested without bipap * Treatment as outlined below * 01/15 18:00 met with patient and son at bedside. Patient wants code status to be 'No Intubation . D/w son and he concurs. He wishes to consider palliative care/hospice in the AM, dependent upon progress. He understands that if his father will not wear BiPap more and will not submit to ET intubation for ventilation, then his respiratory muscles will likely fail soon and CO2 narcosis will ensue, leading to . * 01/16 AM met with son and discussed his decision after 7 PM last night to do comfort care and DNR. He wishes to meet with [facility] today. * 01/17 Patient and family opted for inpatient hospice to control dyspnea and agitation. They with to discharge to [place] with hospice when symptoms are controlled. (2) COPD (chronic obstructive pulmonary disease): Qualifiers: COPD type: COPD with acute lower respiratory infection Qualified Code(s): J44.0 - Chronic obstructive pulmonary disease with (acute) lower respiratory infection Code(s): J44.9 - Chronic obstructive pulmonary disease, unspecified Status: Chronic Assessment and Plan: * RML PNA by CTA chest * Continue cefepime day 4 * Stopped azithromycin and vancomycin 01/12 and utilize doxycycline due to QT prolongation potential * PT/OT * 01/15 increased steroids, but monitor mental status (3) Multifocal atrial tachycardia: Code(s): I47.1 - Supraventricular tachycardia Status: Acute Assessment and Plan: * 01/12 switched to PO diltiazem CD * 01/15 HR control improved with diltiazem CD 360mg (4) HTN (hypertension): Qualifiers: Hypertension type: essential hypertension Qualified Code(s): I10 - Esse ntial (primary) hypertension Code(s): I10 - Essential (primary) hypertension Status: Chronic Assessment and Plan: * Monitor (5) Multiple sclerosis: Code(s): G35 - Multiple sclerosis Status: Chronic Assessment and Plan: * On steroid taper as outpatient * Follows with outside neurologist (6) Anxiety: Code(s): F41.9 - Anxiety disorder, unspecified Status: Chronic Assessment and Plan: * 3/6 D/w son prior dx of bipolar from [facility] * 3/ He seemed delusional and confabulating but is oriented to year and month, thought he was in [facility] * Acute illness, steroids, hopitalization, underlying psychiatric issues all likely contributing * Decrease HS quetiapine to 100mg and hold AM olanzepine due to addition of comfort meds DS: Summary Hospital Course Reason for hospitalization: Dyspnea Hospital Course: See course listed by problem under problem list. Time Spent with
--- NOTE | 2020-01-17 11:44 | PM.DS ---
DS: Diagnosis Admitting Diagnosis Admitting Diagnosis: Respiratory failure, unspecified, unspecified whether with hypoxia or hypercapnia Discharge Diagnosis (1) Respiratory failure: Qualifiers: Chronicity: acute Respiratory failure complication: hypoxia Qualified Code(s): J96.01 - Acute respiratory failure with hypoxia Code(s): J96.90 - Respiratory failure, unspecified, unspecified whether with hypoxia or hypercapnia Status: Acute Assessment and Plan: Admitted with dyspnea and COPD exacerbation Treated with oxygen, bipap, and broad spectrum antibiotics, as well as steroids and bronchodilators Continued with agitation and dyspnea and resistance to care He remained oriented but delusional Bipolar meds were adjusted with some improvement in agitation He refused bipap and was severely dyspnea, prompting increased agitation. Patient rested without bipap Treatment as outlined below 01/15 18:00 met with patient and son at bedside. Patient wants code status to be 'No Intubation . D/w son and he concurs. He wishes to consider palliative care/hospice in the AM, dependent upon progress. He understands that if his father will not wear BiPap more and will not submit to ET intubation for ventilation, then his respiratory muscles will likely fail soon and CO2 narcosis will ensue, leading to . 01/16 AM met with son and discussed his decision after 7 PM last night to do comfort care and DNR. He wishes to meet with [facility] today. 01/17 Patient and family opted for inpatient hospice to control dyspnea and agitation. They with to discharge to [place] with hospice when symptoms are controlled. (2) COPD (chronic obstructive pulmonary disease): Qualifiers: COPD type: COPD with acute lower respiratory infection Qualified Code(s): J44.0 - Chronic obstructive pulmonary disease with (acute) lower respiratory infection Code(s): J44.9 - Chronic obstructive pulmonary disease, unspecified Status: Chronic Assessment and Plan: RML PNA by CTA chest Continue cefepime day 4 Stopped azithromycin and vancomycin 01/12 and utilize doxycycline due to QT prolongation potential PT/OT 01/15 increased steroids, but monitor mental status (3) Multifocal atrial tachycardia: Code(s): I47.1 - Supraventricular tachycardia Status: Acute Assessment and Plan: 01/12 switched to PO diltiazem CD 01/15 HR control improved with diltiazem CD 360mg (4) HTN (hypertension): Qualifiers: Hypertension type: essential hypertension Qualified Code(s): I10 - Essential (primary) hypertension Code(s): I10 - Essential (primary) hypertension Status: Chronic Assessment and Plan: Monitor (5) Multiple sclerosis: Code(s): G35 - Multiple sclerosis Status: Chronic Assessment and Plan: On steroid taper as outpatient Follows with outside neurologist (6) Anxiety: Code(s): F41.9 - Anxiety disorder, unspecified Status: Chronic Assessment and Plan: 01/13 D/w son prior dx of bipolar from [facility] 01/13 He seemed delusional and confabulating but is oriented to year and month, thought he was in [facility] Acute illness, steroids, hopitalization, underlying psychiatric issues all likely contributing Decrease HS quetiapine to 100mg and hold AM olanzepine due to addition of comfort meds DS: Summary Hospital Course Reason for hospitalization: Dyspnea Hospital Course: See course listed by problem under problem list. Time Spent with Patient Time attestation: Total time spent providing and/or coordinating discharge services: Exam Narrative: Exam Narrative: HEENT: EOMI, PERRL, pharyngeal mucosa pink and intact NECK: No JVD, adenopathy, or thyromegaly CHEST: Coarse Rhonchi HEART: NL S1/S2, regular, no murmur ABDOMEN: BS+, soft, nontender, no mass, no bruits EXTREMITIES: No cyanosis, edema, or clubbing NEUROLOGIC: CN intact and sy
== END 2020-01-17 12:08 | disposition hospice, inpatient (51) | DRG 193 ==
LOC: ANHED 10:56 → ANHIMU 18:07
PROVIDERS: Nurse Practitioner; Admitting Provider Family Medicine; Emergency Provider Emergency Medicine; Visit Provider Internal Medicine
DX: J18.9 Pneumonia, unspecified organism (principal); J96.01 Acute respiratory failure with hypoxia; J44.1 Chronic obstructive pulmonary disease with (acute) exacerbation; I47.1 Supraventricular tachycardia; J44.0 Chronic obstructive pulmonary disease with (acute) lower respiratory infection; I10 Essential (primary) hypertension; G35 Multiple sclerosis; F41.9 Anxiety disorder, unspecified; E78.5 Hyperlipidemia, unspecified; R91.1 Solitary pulmonary nodule; I48.91 Unspecified atrial fibrillation; M10.9 Gout, unspecified; N20.0 Calculus of kidney; Z87.891 Personal history of nicotine dependence
CPT/HCPCS: 36415; 36600; 71045; 71046; 71275; 80048; 80053; 81001; 82375; 82607; 82746; 82805; 83050; 83540; 83550; 83735; 83880; 84439; 84443; 84480; 84484; 85025; 85027; 85046; 85380; 85610; 85730; 87040; 87804; 93005; 93306; 93970; 94002; 94640; 96365; 96367; 96375; 96376; 97162; 97166; 97530; 97535; 99291; A9270; J0131; J0456; J0692; J0696; J1650; J1940; J2060; J2930; J3370; J7512; Q9967

== ENCOUNTER 2020-01-17 12:09 | HOS | payer OTHER, MEDICARE, SELFPAY ==
[2020-01-17 14:25] VITALS: BMI 21.4
[2020-01-17] MEDS: IPRATROPIUM BR 0.02% INH SOLN 0.5 MG/2.5 ML VIAL INHALATION ×2 (14:29→21:42)
[2020-01-17 14:30] VITALS: PULSE 98; RESP 20; O2SAT 87
[2020-01-17] MEDS: ALBUTEROL SULFATE NEB 2.5 MG/0.5 ML INH INHALATION ×2 (14:30→21:42)
[2020-01-17 14:44] VITALS: PULSE 78; RESP 20
--- NOTE | 2020-01-17 19:30 | PM.IMHP ---
H&P: HPI History of Present Illness Chief complaint: COPD Narrative: Jordy Doyle is a 64 year old male admitted to [facility] January 11 with COPD exacerbation and pneumonia. Treated with broad-spectrum antibiotics. Initially refused BiPAP. Intermittently agitated. No recent drug or alcohol use. Last drug use was crack cocaine in November 2019. He continued to be severely short of breath with any exertion. He was delusional until few days ago. This improved with adjustment of his antipsychotic medication. He has a tentative diagnosis of bipolar disorder from [facility]. Because of his severe dyspnea, severe anxiety, advanced COPD, his desire not to wear noninvasive ventilator devices, progressive multiple sclerosis, and his desire to be do not resuscitate status, he is family opted for inpatient hospice care to adjust comfort medications prior to discharge into a facility. Review of Systems Review of Systems: All systems reviewed & are unremarkable except as noted in HPI and below PMFSH Past Medical History Medical History Anxiety COPD (chronic obstructive pulmonary disease) Gout HLD (hyperlipidemia) HTN (hypertension) Kidney stones Multiple sclerosis Required emergent intubation Surgical History Surgical History History of extraction of renal calculus Family History Family History Unknown Family history unknown Social History Social History (Updated 01/17/20 @ 19:38 by Parth Brandon MD) Social History: The patient is . He was at [facility]. He has 3 children the oldest son is a durable power contract attorney for healthcare. Smoking packs per day: 1 Smoking cigarettes per day: 20.0 Years smoked: 30 Smoking pack-years: 30.00 Smoking status: Former smoker Tobacco type: cigarettes Second hand tobacco smoke exposure: Yes Smoking end date: 11/29/14 Alcohol intake: former Substance use: current Substance use type: crack/cocaine Other substance usage details: 1-2 times per week until 11/2019 Last use: November 2019 Living arrangements: with family Occupation/Education: retired Gender identity (if verbalized by the patient): Male Spiritual care concerns: No Agree to blood products: Yes Meds Home Medications and Allergies Home Medications Medication Instructions Recorded Confirmed Type acetaminophen 650 mg PO Q4H PRN 01/12/20 01/17/20 History albuterol sulfate 2.5 mg INHALATION Q6H PRN 01/12/20 01/17/20 History allopurinol 300 mg PO DAILY 01/12/20 01/17/20 History niacin 100 mg PO TIDWM 01/12/20 01/17/20 History olanzapine 5 mg PO DAILY 01/12/20 01/17/20 History ondansetron 4 mg PO Q4H PRN 01/12/20 01/17/20 History prednisone 10 mg PO DAILY 01/12/20 01/17/20 History prednisone 20 mg PO DAILY 01/12/20 01/17/20 History prednisone 30 mg PO DAILY 01/12/20 01/17/20 History quetiapine 50 mg PO HS 01/12/20 01/17/20 History ropinirole 1 mg PO TID 01/12/20 01/17/20 History thiamine HCl (vitamin B1) [Vitamin 100 mg PO DAILY 01/12/20 01/17/20 History B-1] umeclidinium-vilanterol [Anoro 1 inh INHALATION DAILY 01/12/20 01/17/20 History Ellipta] Allergies Allergy/AdvReac Type Severity Reaction Status Date / Time No Known Allergies Allergy Verified 01/12/20 08:53 Vital Signs Vital Signs - 24 hr 01/17/20 14:30 01/17/20 14:44 Pulse Rate 98 78 Respiratory Rate 20 20 Pulse Oximetry 87 L Exam Narrative: Exam Narrative: Exam Narrative: HEENT: EOMI, PERRL, pharyngeal mucosa pink and intact NECK: No JVD, adenopathy, or thyromegaly CHEST: Coarse rhonchi, tachypneic HEART: NL S1/S2, regular, no murmur ABDOMEN: BS+, soft, nontender, no mass, no bruits EXTREMITIES: No cyanosis, edema, or clubbing NEUROLOGIC: CN intact and symmetric to inspection. MUSCULOSKELETAL: Tone and strength sy
[2020-01-17] MEDS: LORAZEPAM INJ 2 MG/ML VIAL 1 MG IV PUSH (20:36)
[2020-01-17] MEDS: DOXYCYCLINE HYCLATE 100 MG TABLET PO (20:49)
[2020-01-17] MEDS: QUEtiapine FUMARATE 100 MG TABLET PO (20:49)
[2020-01-17 20:50] VITALS: BP 142/82; PULSE 95; RESP 28; TEMP 36.6; O2SAT 91; BMI 21.1
[2020-01-17 21:42] VITALS: PULSE 97; RESP 24; O2SAT 88
[2020-01-17 21:55] VITALS: PULSE 90; RESP 24
[2020-01-18] MEDS: LORAZEPAM INJ 2 MG/ML VIAL 1 MG IV PUSH ×3 (01:01→10:05)
[2020-01-18] MEDS: MORPHINE SULFATE 4 MG/ML INJ IV PUSH ×3 (01:05→08:31)
[2020-01-18] MEDS: IPRATROPIUM BR 0.02% INH SOLN 0.5 MG/2.5 ML VIAL INHALATION (02:08)
[2020-01-18] MEDS: ALBUTEROL SULFATE NEB 2.5 MG/0.5 ML INH INHALATION (02:08)
[2020-01-18 02:09] VITALS: PULSE 90; RESP 26
[2020-01-18 02:19] VITALS: PULSE 88; RESP 24
[2020-01-18 06:15] VITALS: BP 132/82; PULSE 82; RESP 22; TEMP 36.3; O2SAT 95
[2020-01-18] MEDS: MORPHINE SULFATE 2 MG/ML INJ 4 MG IV PUSH ×4 (10:06→21:12)
[2020-01-18] MEDS: GLYCOPYRROLATE INJ (*SP) 0.2 MG/ML VIAL 0.1 MG IV PUSH ×3 (11:44→23:36)
[2020-01-18] MEDS: LORAZEPAM INJ 2 MG/ML VIAL IV PUSH ×4 (14:53→20:11)
[2020-01-18] MEDS: HALOPERIDOL LACTATE 5 MG/ML VIAL (14:53)
--- NOTE | 2020-01-18 17:33 | PM.IMPN ---
Progress Note: A&P Assessment and Plan (1) Palliative care by specialist: Code(s): Z51.5 - Encounter for palliative care Status: Acute Assessment and Plan: Requires inpatient hospice due to uncontrolled dyspnea, anxiety, intermittent agitation Initiated continuous IV morphine 2mg/hr, scheduled lorazepam, and prn IM haloperidol to achieve comfort Oxygen, bowel regimen, and remainder of palliative regimen as ordered Discussed with son at bedside (2) Respiratory failure: Qualifiers: Chronicity: acute on chronic Respiratory failure complication: hypoxia and hypercapnia Qualified Code(s): J96.21 - Acute and chronic respiratory failure with hypoxia; J96.22 - Acute and chronic respiratory failure with hypercapnia Code(s): J96.90 - Respiratory failure, unspecified, unspecified whether with hypoxia or hypercapnia Status: Acute (3) COPD exacerbation: Code(s): J44.1 - Chronic obstructive pulmonary disease with (acute) exacerbation Status: Acute (4) Multifocal atrial tachycardia: Code(s): I47.1 - Supraventricular tachycardia Status: Acute (5) Anxiety: Code(s): F41.9 - Anxiety disorder, unspecified Status: Chronic (6) Multiple sclerosis: Code(s): G35 - Multiple sclerosis Status: Chronic (7) HTN (hypertension): Qualifiers: Hypertension type: essential hypertension Qualified Code(s): I10 - Essential (primary) hypertension Code(s): I10 - Essential (primary) hypertension Status: Chronic Subjective Date/time seen: 01/18/20 17:33 Interval history: Agitated last pm and this AM. Resting comfortably now. Exam Narrative: Exam Narrative: Exam Narrative: normocephalic NECK: No JVD, adenopathy, or thyromegaly CHEST: Coarse rhonchi HEART: NL S1/S2, regular, no murmur ABDOMEN: BS+, soft, nontender, no mass, no bruits EXTREMITIES: No cyanosis, edema, or clubbing NEUROLOGIC: CN intact and symmetric to inspection. MUSCULOSKELETAL: Tone and strength symmetric. PSYCH: Sleeping. Responds to noxious stimuli Objective Data Vital Signs Vital Signs: Vital Signs - 24 hr 01/17/20 20:50 01/17/20 21:42 01/17/20 21:55 Temperature 97.9 F Pulse Rate 95 97 90 Respiratory Rate 28 H 24 H 24 H Blood Pressure 142/82 H Pulse Oximetry 91 88 L 01/18/20 02:09 01/18/20 02:19 01/18/20 06:15 Temperature 97.4 F L Pulse Rate 90 88 82 Respiratory Rate 26 H 24 H 22 H Blood Pressure 132/82 Pulse Oximetry 95 Intake/Output Intake/Output: Intake & Output 01/15/20 01/16/20 01/17/20 01/18/20 22:59 23:59 23:59 23:59 Intake Total 50 Balance 50 Meds/Results Medications: Active Medications Generic Name Dose Route Start Last Admin Trade Name Freq PRN Reason Stop Dose Admin Acetaminophen 650 mg 01/17/20 16:17 Tylenol Suppository RECTAL Q6H PRN Mild Pain (1-3) or Fever Bisacodyl 10 mg 01/17/20 12:45 Dulcolax Suppository RECTAL DAILY PRN Constipation Glycopyrrolate 0.1 mg 01/18/20 09:51 01/18/20 11:44 Robinul Inj IV PUSH 0.1 mg Q4H PRN Administration SECRETIONS Haloperidol Lactate 5 mg 01/18/20 18:00 Haldol Injection IM Q6HR NOEMI Morphine Sulfate 50 mg/ Sodium 100 mls @ 4 mls/hr 01/18/20 13:00 01/18/20 13:34 Chloride IV CONT 2 mg/hr .Q24H NOEMI 4 mls/hr Administration 2 MG/HR Lorazepam 2 mg 01/18/20 12:22 Ativan Inj IV PUSH Q2H PRN Anxiety Lorazepam 2 mg 01/18/20 13:00 01/18/20 17:30 Ativan Inj IV PUSH 2 mg Q4HR NOEMI Administration Morphine Sulfate 4 mg 01/18/20 00:00 01/18/20 13:34 Morphine Sulfate Inj IV PUSH 4 mg Q2H PRN Administration Pain Rated 7-10
[2020-01-18] MEDS: HALOPERIDOL LACTATE 5 MG/ML VIAL IM ×2 (18:00→23:36)
--- NOTE | 2020-01-18 20:18 | PC.NURSE ---
at 1145, i called [facility]riel to get additional orders to get pt relief. he was alerting, thrashing, extremely anxious. given one time dose of 2 mg ativan. at 1230, ariel called back with new orders noted in jan: morphine drip 2 mg/hr IV morphine 4 mg Q2Hr IVP PRN ativan 2 mg Q4Hr IVP NOEMI ativan 2 mg Q2Hr IVP PRN haldol 5mg Q6Hr IM NOEMI
[2020-01-18 20:48] VITALS: BP 120/82; PULSE 100; RESP 16; TEMP 37.2; O2SAT 95
--- NOTE | 2020-01-18 21:30 | PC.NURSE ---
Pt having increased difficulty breathing, Pt was suctioned and the HOB elevated. [facility] called for orders.
[2020-01-18] MEDS: MORPHINE SULFATE 10 MG/ML AMP 5 MG IV PUSH (23:58)
[2020-01-19 00:05] VITALS: TEMP 37.5
[2020-01-19] MEDS: LORAZEPAM INJ 2 MG/ML VIAL IV PUSH ×6 (01:00→21:02)
[2020-01-19] MEDS: GLYCOPYRROLATE INJ (*SP) 0.2 MG/ML VIAL 0.1 MG IV PUSH ×2 (01:00→02:30)
[2020-01-19] MEDS: HALOPERIDOL LACTATE 5 MG/ML VIAL IM ×3 (05:13→17:30)
[2020-01-19 06:14] VITALS: BP 91/50; PULSE 141; RESP 12; TEMP 37.9
[2020-01-19] MEDS: MORPHINE SULFATE 10 MG/ML AMP 5 MG IV PUSH (07:36)
[2020-01-19 13:00] VITALS: BP 84/46; PULSE 110; RESP 10; TEMP 37.1; O2SAT 88
[2020-01-19 20:47] VITALS: BP 67/37; PULSE 105; RESP 12; TEMP 37.1; O2SAT 89
[2020-01-20] MEDS: HALOPERIDOL LACTATE 5 MG/ML VIAL IM (00:47)
[2020-01-20] MEDS: LORAZEPAM INJ 2 MG/ML VIAL IV PUSH (00:47)
--- NOTE | 2020-01-25 15:08 | PM.DDS ---
Discharge Sum: Prov Provider Primary care physician: UNKNOWN,DOCTOR Admitting provider: Parth Brandon MD Discharge Sum: Diag Contributing Factors (1) Acute respiratory failure with hypoxia: (2) AMS (altered mental status): (3) Multifocal atrial tachycardia: (4) COPD exacerbation: (5) Atrial fibrillation with RVR: (6) Multiple sclerosis: Discharge Sum: Summary Date and Time Date of admission: 01/17/20 12:09 Summary Details: Mr. Doyle was admitted to inpatient hospice due to uncontrolled dyspnea and agitation due to end stage COPD with underlying substance abuse and bipolar disorder. Medications were titrated to comfort and he peacefully. Additional Data Attending physician: Parth Brandon MD Was code activated?: No
== END 2020-01-20 06:18 | disposition expired | DRG 189 ==
LOC: ANHIMU 18:59 → ANH3MEDSUR 22:06
PROVIDERS: Admitting Provider Internal Medicine; Visit Provider Internal Medicine
DX: J96.21 Acute and chronic respiratory failure with hypoxia (principal); J44.1 Chronic obstructive pulmonary disease with (acute) exacerbation; I47.1 Supraventricular tachycardia; Z51.5 Encounter for palliative care; F41.9 Anxiety disorder, unspecified; J96.22 Acute and chronic respiratory failure with hypercapnia; G35 Multiple sclerosis; I10 Essential (primary) hypertension; F31.9 Bipolar disorder, unspecified; I48.91 Unspecified atrial fibrillation; F19.10 Other psychoactive substance abuse, uncomplicated
CPT/HCPCS: 94640; A9270; J0692; J1630; J2060; J2270